=== PATIENT | female | born 2005 | race Caucasian/White ===

== ENCOUNTER 2024-06-20 14:50 | Emergency (ER) | payer OTHER, SELFPAY ==
--- NOTE | ~2024-06-20 | XR_ITS ---
CLINICAL HISTORY: cough, sob 2 view chest x-ray Comparison: None Findings: The lungs are clear. Normal size heart. No acute fracture. IMPRESSION: 1. No acute findings. This document has been electronically signed by: Laila Falcon MD on 06/20/2024 16:26:55
--- OUTSIDE RECORDS SUMMARY | 2024-06-20 14:52 | XMS_ITS ---
Author Organization [facility], Address [address] [place] [address] Care Team Providers Care Operations Specialist Name Role Phone Bella Padilla Unavailable [phone] ALLERGIES, ADVERSE REACTIONS, ALERTS Substance Code Code System Type Reaction Severity Status Start Date End Date gluten 8754225 RxNorm Food allergy () 0 MEDICATIONS Medication Code Code System Start Date Stop Date Route Dosage Directions Fill Instructions ADVAIR DISKUS 250-50MCG/ACT AEPB RxNorm 01/27/20 23 1 CETIRIZINE HCL 10 MG TABLET RxNorm 023 FLUTICASONE PROP 50 MCG SPRAY RxNorm 3 fluticasone propionate 2834720 RxNorm 5 intranasal 1 cetirizine 2779628 RxNorm 5 oral 1 PROBLEMS Problem Name Code Code System Start Date End Date Stat us Other asthma 387466449 [facility] Inactiv e Fever, unspecified 911228917 [facility] 03/28/2023 Resolved Viral infection, unspecified 24710067 [facility] 03/28/2023 Inactive Allergic rhinitis, unspecified 96899214 [facility] 06/19/2024 Active Acute serous otitis media, bilateral 792606536 [facility] 06/19/2024 Active Postnasal drip 85241201 [facility] 06/19/2024 Activ e ENCOUNTERS Encounter Diagnosis Code Code System Date Stat us Fever, unspecified 945017311 [facility] 03/28/2023 Active Viral infection, unspecified 18942601 [facility] 023 Active IMMUNIZATIONS * None VITAL SIGNS Code Code System Vitals Name Date Value and Un its 8462-4 [facility] Blood Pressure-Diastolic 03/28/2023 84 mmHg 8480-6 [facility] Blood Pressure-Systolic 03/28/2023 1 36 mmHg 8867-4 [facility] Heart Rate 03/28/2023 144 /min 9279-1 [facility] Respiratory Rate 03/28/2023 18 /min 8310-5 [facility] Body Temperature 03/28/2023 100.9 F 32358-9 [facility] Oxygen Saturation 03/28/2023 98 % SOCIAL HISTORY * None PROCEDURES Code Code System Procedure Date Status Notes A9150 Cpt4 PO Ibuprofen (Motrin/Advil) (Adult) 03/28/2023 completed Bella Julianryna - 03/28/2023 Dose: 600 mg. Expiration date: 07/13/2024. [employer] Cust[employer]ian lot #: [id number]. [facility] #: [id number].Patient was observed for 5 minutes. Patient tolerated procedure well. Patient left room without difficulty. RESULTS Test Code Code System Description Result Value Date Ref erence Range [facility] Strep A Not Detected 03/28/2023 Not De tected [facility] SARS-CoV-2 Not Detected 03/28/2023 Not D etected [facility] Flu A Not Detected 03/28/2023 Not De tected [facility] Flu B Not Detected 03/28/2023 Not De tected MEDICAL EQUIPMENT * Patient has no history of implantable devices ASSESSMENT * None TREATMENT PLAN Type Description Date APPOINTMENT If not feeling cayden r in 3 day(s), please see your primary care physician. If you do not have a primary care physician, please return to this clinic. 03/28/2023 Labs Tests Test Name Code Code System Date SARS-CoV-2 & Flu A/B Multipl ex Assay, Amplified Probe Molecular RT-PCR / NAAT 18872 [facility] 03/28/2023 Strep A, DNA, Amplified Probe PCR 37403 [facility] 03/28/2023 GOALS * None HEALTH CONCERNS * No Health Concerns FUNCTIONAL AND COGNITIVE STATUS * None CONSULTATION NOTES * None DISCHARGE SUMMARY NOTES * None HISTORY AND PHYSICAL NOTES * None IMAGING NOTES * None LABORATORY REPORT NARRATIVE NOTES * None PATHOLOGY REPORT NARRATIVE NOTES * None PROGRESS NOTES * None
--- OUTSIDE RECORDS SUMMARY | 2024-06-20 14:52 | XMS_ITS ---
Author Organization [facility] Address [address] [place] [address] Care Team Providers Care Reptile Keeper Name Role Phone Grecia Washington Unavailable [phone] ALLERGIES, ADVERSE REACTIONS, ALERTS Substance Code Code System Type Reaction Severity Status Start Date End Date gluten 9860492 RxNorm Food allergy () 0 MEDICATIONS Medication Code Code System Start Date Stop Date Route Dosage Directions Fill Instructions ADVAIR DISKUS 250-50MCG/ACT AEPB RxNorm 01/27/20 23 1 CETIRIZINE HCL 10 MG TABLET RxNorm 023 FLUTICASONE PROP 50 MCG SPRAY RxNorm 3 fluticasone propionate 8599223 RxNorm 5 intranasal 1 cetirizine 0516192 RxNorm 5 oral 1 PROBLEMS Problem Name Code Code System Start Date End Date Stat us Other asthma 714975841 [facility] Inactiv e Fever, unspecified 872021329 [facility] 03/28/2023 Resolved Viral infection, unspecified 34608592 [facility] 03/28/2023 Inactive Allergic rhinitis, unspecified 83353331 [facility] 06/19/2024 Active Acute serous otitis media, bilateral 922398779 [facility] 06/19/2024 Active Postnasal drip 45965218 [facility] 06/19/2024 Activ e ENCOUNTERS Encounter Diagnosis Code Code System Date Stat us Allergic rhinitis, unspecified 34372270 [facility] 025 Active Acute serous otitis media, bilateral 104486673 [facility] 06/19/2024 Active Postnasal drip 50079963 [facility] 06/19/2024 Active IMMUNIZATIONS * None VITAL SIGNS Code Code System Vitals Name Date Value and Un its 8462-4 [facility] Blood Pressure-Diastolic 06/19/2024 74 mmHg 8480-6 [facility] Blood Pressure-Systolic 06/19/2024 1 16 mmHg 8867-4 [facility] Heart Rate 06/19/2024 83 /min 9279-1 [facility] Respiratory Rate 06/19/2024 16 /min 8310-5 [facility] Body Temperature 06/19/2024 97.4 F 57990-8 [facility] Oxygen Saturation 06/19/2024 99 % SOCIAL HISTORY * None PROCEDURES * None RESULTS Test Code Code System Description Result Value Date Ref erence Range [facility] Strep A Not Detected 06/19/2024 Not Det ected MEDICAL EQUIPMENT * Patient has no history of implantable devices ASSESSMENT Assessment You are seen in urgent care today due to respiratory symptoms. On physical exam you have clear effusions behind both your ears we see this in viruses allergies and weather changes and definitely the combination thereof. When I look at. Nose you have very pale purple tinted nasal turbinates bilaterally we see this in cases of allergies and weather changes. In the back your throat you have moderate cobblestoning we see this in cases of postnasal drip from underlying viral and most pacifically allergy related postnasal drip mucus.Recommend addressing this with an antihistamine which is allergy medicine twice daily until improved along with a nasal spray twice daily until improved this can take a very long time to get better please return for any acute changes but as of today there is no indication of a middle or external ear infection strep throat mono tonsillitis pneumonia or bronchitis.Serous Otitis Media is NOT an ear infection, instead, it is a build up of fluid behind your ear drum that causes sensation of pressure/blockage and at times can cause dizziness, crackling/popping sounds, and discomfort. Fluid behind ear drums is a common condition associated with Allergies, Viral upper respiratory infections, sinus inflammation, and many other upper respiratory conditions. This condition will typically resolve on its own within several days but may take up to 4-6 weeks. Infections may occur during this time as the fluid may develop bacterial growth. It is NOT appropriate to treat fluid behind ear drums with antibiotics without clear signs of infection. There is no specific treatment for the fluid itself that is stuck behind ear drums and no bacterial infection. Common things to try to relieve fluid from middle ear are: Decongestant medications, Antihistamines with decongestants (Zyrtec-D twice daily for 5 days), sour hard candies(war heads/lemon drops), Flonase, pinching nose and gently trying to blow out your nose. Be sure to drink plenty of fluids and electrolytes, especially if taking over the counter meds. TREATMENT PLAN Type Description Date MEDICATION Take 50 mcg/actuation spray, rossy pension 06/19/2024 MEDICATION Take 10 mg capsule 06/19/2024 APPOINTMENT If not feeling cayden r in 3 day(s), please see your primary care physician. If you do not have a primary care physician, please return to this clinic. 06/19/2024 Labs Tests Test Name Code Code System Date Shira (SASA) Strep A, DNA Ass ay, Amplified Probe Molecular RT-PCR / NAAT 38782 CPT 06/19/2024 GOALS * None HEALTH CONCERNS * No Health Concerns FUNCTIONAL AND COGNITIVE STATUS Condition Type Condition Effective Dates Condition Status CONSULTATION NOTES * None DISCHARGE SUMMARY NOTES * None HISTORY AND PHYSICAL NOTES * Patient: SHIV ABEL, Sex: F (ID# [id number]) Date of : 2005 (19 years) Visit on 06/19/2024 (Log# [id number]) Historian: Self History of Present Illness: Patient comes in urgent care today accompanied by her mom. Patient states is basically since she has had a runny and stuffy nose with painful swallowing specially for thing in the morning and at nighttime. She has an intermittent cough only here and there. She feels bilateral ear pressure but no ringing hearing loss or dizziness. Denies feeling short of breath no abdominal pain no nausea vomiting no diarrhea. She tried cold medicine but does make her feel any better. Mom is healthy. She has had no travel no rashes. She is able tolerate p.o. fluids and void regularly. Complaint: The patient presents with a chief complaint of sore throat of the neck since Jun 05, 2024. It has the following qualities: scratchy and difficulty swallowing. Context - Initial History: The patient reports it was not the result of an injury. The patient reports that the onset was: ASSOCIATED WITH FEVER; ASSOCIATED WITH PAIN WITH SWALLOWING; not associated with Inability to swallow fluids; ASSOCIATED WITH COUGH; not associated with swollen lymph nodes; not associated with neck pain. The patient also reports cough, fever, nasal discharge, and nasal congestion as abnormal symptoms related to the complaint. Review of Systems: The patient complains of the following recent symptoms: Constitutional: fever fatigue ENT and Mouth: nasal congestion ear pain nasal discharge sore throat: See HPI Respiratory: cough The patient denies the following recent symptoms: Constitutional: denies chills Respiratory: denies congestion Musculoskeletal: denies aches/pains Allergies: patient specifies no known drug allergies gluten: Food allergy. Medications: patient specifies no active medications Problem List: patient specifies no active problems Surgeries: Abdominal/Pelvic surgery: Appendectomy. Social History: Tobacco Use: denies Alcohol: denies Street / Unprescribed Drugs: denies Family History: patient specifies no conditions Vitals: 06:07 PM (06/19/2024)Temperature: 97.4 ?F, Pulse: 83 BPM, BP: 116/74, Respirations: 16/min, O2 Saturation: 99%, O2 Delivery: RAFirst entered 06/19/2024 18:07 by Luis Antonio Heredia Physical Exam: The following exam elements were documented to be abnormal: ENT: abnormality of oropharynx noted. Pharynx: Non-erythematous. No injection. No petechiae. No swelling. Normal voice. Normal swallow reflex. Post-nasal drip noted, with clear fluid. Uvula normal. Normal salivary glands. [place] tonsils: Right: No exudate. Tonsil normal in color. No swelling. Left: No exudate. Tonsil normal in color. No swelling, Moderate cobblestoning posterior pharynx, uvula is midline no trismus. ENT: grossly visible nasal discharge present, Pale edematous purple tented nasal turbinates bilaterally no erythema or purulent discharge noted. The following exam elements were documented to be normal: Cardiovascular: S1, S2 noted, normal rate, regular rhythm, and no murmurs, rubs, gallop, or extra heart sounds. ENT: speaks in normal voice without hoarseness. ENT: oral mucosa without ulcer, plaque, or laceration. ENT: tympanic membranes normal bilaterally. ENT: lips without swelling or lesion, good dentition, no gum swelling, tongue normal in appearance. Eyes: normal conjunctiva bilaterally. General: well developed, well nourished, and in no apparent distress. Lymph: no cervical lymphadenopathy. Muscular: normal active cervical range of motion noted. Muscular: normal posture. Neurological: normal cognitive function. Psychiatric: oriented and alert. Respiratory: breathing effort and rate are grossly normal, speaks in full sentences. Respiratory: no increased work of breathing. Respiratory: lungs clear to auscultation bilaterally with good air movement, no stridor, crackles, rubs, or wheezing. Skin: no visible rash/lesions. Skin: skin dry and normal in temperature. Labs: Shira (SASA) Strep A, DNA Assay, Amplified Probe Molecular RT-PCR / NAAT Code(s): 69432 Results Strep A: Not Detected [place] Shira 3 ([id number]), [id number], Expiry: Operator: [email or web address] Order entered 06/19/2024 18:06 by Luis Antonio Heredia Under supervision of ordering provider STONE GREGORY Completed 06/19/2024 18:06 by Luis Antonio Heredia Reviewed 06/19/2024 18:20 by Grecia Washington Diagnoses: Allergic rhinitis, unspecified (J30.9) Acute serous otitis media, bilateral (H65.03) Postnasal drip (R09.82) Medication Orders: Prescribed: fluticasone propionate 50 mcg/actuation spray, suspension; Take 1 spray (intranasal) 2 times per day for 90 Days administer into each nostril; Total Qty: 15.8 (fifteen point eight) Gram; 2 refill(s); Substitutions allowed; Earliest Fill Date: 06/19/2024ePrescribed at 6:28 PM on 06/19/2024 by MODESTO Gregoryrescription sent to [id number] (P: [phone] F: [phone]) [address] [place] [address], [address] Prescribed: cetirizine 10 mg capsule; Take 1 Capsule (oral) daily for 90 Days; Total Qty: 90 (ninety) Capsule; 0 refill(s); Substitutions allowed; Earliest Fill Date: 06/19/2024ePrescribed at 6:28 PMon 06/19/2024 by MODESTO Gregoryrescription sent to [id number] (P: [phone] F: [phone]) [address] [place], [address] Discharge Instructions: Allergic Rhinitis, Adult Otitis Media With Effusion, Adult Postnasal Drip Plan: If not feeling better in 3 day(s), please see your primary care physician. If you do not have a primary care physician, please return to this clinic. You are seen in urgent care today due to respiratory symptoms. On physical exam you have clear effusions behind both your ears we see this in viruses allergies and weather changes and definitely the combination thereof. When I look at. Nose you have very pale purple tinted nasal turbinates bilaterally we see this in cases of allergies and weather changes. In the back your throat you have moderatecobblestoning we see this in cases of postnasal drip from underlying viral and most pacifically allergy related postnasal drip mucus. Recommend addressing this with an antihistamine which is allergy medicine twice daily until improved along with a nasal spray twice daily until improved this can take a very long time to get better please return for any acute changes but as of today there is no indication of a middle or external ear infection strep throat mono tonsillitis pneumonia or bronchitis. Serous Otitis Media is NOT an ear infection, instead, it is a build up of fluid behind your ear drum that causes sensation of pressure/blockage and at times can cause dizziness, crackling/popping sounds, and discomfort. Fluid behind ear drums is a common condition associated with Allergies, Viral upper respiratory infections, sinus inflammation, and many other upper respiratory conditions. This condition will typically resolve on its own within several days but may take up to 4-6 weeks. Infections may occur during this time as the fluid may develop bacterial growth. It is NOT appropriate to treat fluid behind ear drums with antibiotics without clear signs of infection. There is no specific treatment for the fluid itself that is stuck behind ear drums and no bacterialinfection. Common things to try to relieve fluid from middle ear are: Decongestant medications, Antihistamineswith decongestants (Zyrtec-D twice daily for 5 days), sour hard candies(war heads/lemon drops), Flonase, pinching nose and gently trying to blow out your nose. Be sure to drink plenty of fluids and electrolytes, especially if taking over the counter meds. Medical Decision Making Notes: The patient presents with symptoms that do not suggest middle or external ear infection, strep throat, mononucleosis, tonsillitis, bacterial sinusitis, bronchitis, or pneumonia. Physical examination reveals no significant findings such as otalgia, erythema, exudate, lymphadenopathy, or abnormal lung sounds. They have reassuring vitals and are maintaining their fluids. Imaging is not indicated at this time, nor are oral antibiotics, oral steroids, or breathing treatments. The patient is stable, and either the patient or accompanying family/friend was provided with strict return precautions andED warning signs. [id number] medications they have requested prescription for allergy medications this has been sent. Recommended adequate hydration for symptom management. The patient agreed with the treatment plan and was discharged home in stable condition. Visit discharged at 06/19/2024 6:28:22 PM by Grecia Washington PA-C Signed electronically by Grecia Washington PA-C on 06/19/2024 6:30:17 PM IMAGING NOTES * None LABORATORY REPORT NARRATIVE NOTES * None PATHOLOGY REPORT NARRATIVE NOTES * None PROGRESS NOTES * None
[2024-06-20 14:54] VITALS: BP 138/77; PULSE 96; RESP 18; TEMP 36.9; O2SAT 99; BMI 21.4
--- NOTE | 2024-06-20 14:54 | ED_ITS ---
HPI - URI/Sore Throat General Chief Complaint: Upper Respiratory Symptoms Stated Complaint: Flu Symptoms Time Seen by Provider: 06/20/24 16:11 Source: patient, family (mother), RN notes reviewed and old records reviewed Mode of arrival: ambulatory Limitations: no limitations History of Present Illness ED Provider: Jamal CONDON Narrative: Patient is a 19-year-old female presenting to the emergency department with complaint sore throat, shortness of breath, nonproductive cough, chills, headache, right-sided chest pain since . Reports low-grade fevers intermittently but none in the past few days. Denies any known sick contacts. Denies any nausea, vomiting, diarrhea. States that onset of symptoms sore throat was the worse symptom which has since improved somewhat. Complains of generalized fatigue/malaise. Has been gargling with salt water with little relief. MD elicited complaint: fever, cough and sore throat Onset (ago): week(s) Able to tolerate fluids by mouth: Yes Related Data Previous Rx's ?Medication ?Instructions ?Recorded amoxicillin 250 mg/5 mL oral 500 mg (10 mL) PO BID 10 days #200 06/20/24 suspension mL Allergies Allergy/AdvReac Type Severity Reaction Status Date / Time No Known Allergies Allergy Verified 06/20/24 14:57 Review of Systems Review of Systems: As per HPI Yes all other systems are reviewed and are negative Constitutional: Constitutional: Reports as per HPI [facility] Social History Social History Advance Directives: No Advance Directives Information Provided: No Do you have a plan to hurt others: No Plan Physical Exam Vital Signs: Vital Signs: Last Vital Signs Temp 98.4 F 06/20/24 14:54 Pulse 96 06/20/24 14:54 Resp 18 06/20/24 14:54 BP 138/77 06/20/24 14:54 Pulse Ox 99 06/20/24 14:54 O2 Del Method Room Air 06/20/24 14:54 BMI result Body Mass Index 21.4 Vital signs have been reviewed and appear to be correct. Blood pressure normal. Heart rate normal. Respiratory rate normal. Temperature normal. Oxygen saturation normal. Const: General: cooperative, healthy appearing and no acute distress Orientation/consciousness: oriented to person, oriented to place, oriented to time and patient oriented x3 Limitations: no limitations HEENT: Head: Yes normocephalic and Yes atraumatic Ears: external ears normal, TM's normal bilaterally and EAC's normal General nose exam: Normal external nose present and Normal nasal mucous membranes and turbinates present Face and sinus: Yes face symmetric Mouth: Normal oral and palatal mucosa pre sent, lip normal, tongue normal, oropharynx normal and moist mucous membranes Throat: Yes uvula midline, Yes abnormal tonsil (erythema, no edema or exudate), No peritonsillar mass, No uvular edema and Yes cobblestoning Eyes: Pupils: Equal, round and reactive pupils present Neck: Neck: Yes normal visual inspection, Yes no lymphadenopathy and Yes supple Resp: Effort & Inspection: normal respiratory effort and able to speak in complete sentences Auscultation: clear to auscultation bilaterally Cardio: Rate: regular rate Rhythm: regular rhythm Heart sounds: S1 normal heart sound present and S2 normal heart sound present GI: Palpation (GI): Soft to palpation and nontender Auscultation: normoactive bowel sounds : General: Yes no CVA tenderness Back/Spine/Pelvis: Back: no CVA tenderness Skin: General skin exam: elasticity normal and turgor normal Neuro: General: oriented to person, oriented to place, oriented to time, patient oriented x3, moves all extremities, no focal motor deficits and CN's II- XI intact bilaterally Cranial nerves: Yes Equal, round and reactive pupils present Cognition (Neuro): normal cognition Extrem: General: Yes full ROM, Yes no pedal edema and Yes no calf tenderness Psych: Mental Status: mental status grossly normal Affect: normal affect Thought process: Normal thought process present Course Course Course Narrative: This is a Rapid Medical Exam performed in triage by Zora Sommer PA-C. Full HPI, ROS and PE to be performed by primary ED provider. 19yo F presenting to the ED c/o URI sx w/cough, SOB, [place], sore throat & CP since . +fever & chills. denies sick contacts or travel PE: lungs cta, mild posterior oropharyngeal erythema. Uvula midline Plan: EKG, viral testing, CXR Medical Decision Making Medical Decision Making MDM Narrative: Patient is a 19-year-old female presenting to the emergency department with complaint sore throat, shortness of breath, nonproductive cough, chills, headache, right-sided chest pain since . On exam patient is awake, A+Ox3, VS WNL, afebrile, normal neurological exam without focal deficits, physical exam findings as above. Given reported symptoms and physical exam findings, initial differential includes but is not limited to viral illness, COVID, flu, RSV, strep pharyngitis, bronchitis, pneumonia. Do not suspect [employer]/RPA. Viral serology negative, strep positive. X-ray chest notable for no evidence of pneumonia. My interpretation is in agreement with the radiologist's interpretation. Physical exam findings reassuring. Results discussed with patient and mother and all questions answered. Will treat with amoxicillin suspension at request of patient as she has difficulty swallowing pills. Discussed with patient that she is contagious until she has been on antibiotics for 24 hours. Advised she continue Tylenol and ibuprofen as needed for fever or discomfort, can also continue to gargle with warm salt water and can use a tsp of honey several times daily. Follow up with PCP as needed. Return precautions discussed at bedside. Patient and mother verbalized understanding of and agreement with plan. Differential Diagnosis Differential Diagnoses: The differential diagnosis associated with the presentation includes As per [facility] Lab Data [facility] Lab Attestation statement: I reviewed the patient's lab results. As per [facility] Labs: Lab Results 06/20/24 Range/Units 15:25 Influenza Type A (PCR) NEGATIVE (Negative) Influenza Type B (PCR) NEGATIVE (Negative) RSV RNA Qual (PCR) NEGATIVE (Negative) SARS-CoV-2 RNA (RT-PCR) NEGATIVE (Negative) S. pyogenes GrpA OBDULIO Positive A (Negative) Independent Interpretation I performed an independent interpretation of an: Plain X-Ray Interpretation: No evidence of pneumonia on chest x-ray Radiology Impression Discussion of test interpretation with radiology: I have reviewed the radiologist's reading. Radiologist Impression: IMPRESSION: 1. No acute findings. External Record Review External record reviewed: Inpatient record, Office record and Outpatient record Prescription Management I considered prescription management with: Antibiotic Discharge Plan Discharge Clinical Impression: Acute streptococcal pharyngitis Patient Disposition: Home, Self-Care Instructions: Strep Throat (DC) Additional Instructions: You were evaluated in the emergency department today for a sore throat. Your strep swab was positive. You are being prescribed antibiotics, please complete the full course as prescribed even if your symptoms improve. You are contagious until you have taken the antibiotics for 24 hours. Be sure to drink adequate fluids. You can use Tylenol and ibuprofen per package directions as needed for discomfort. You can also gargle with warm salt water several times daily. Follow-up with your primary care provider this week. Return to the emergency department if you develop difficulty swallowing, worsening pain, shortness of breath, are unable to swallow your saliva, fever not improved with Tylenol/ibuprofen, or any other concerning symptoms. Prescriptions: New amoxicillin 250 mg/5 mL suspension for reconstitution 500 mg PO BID 10 Days Qty: 200 0RF Print Language: Yoruba
--- NOTE | 2024-06-20 14:55 | ECG_ITS ---
Test Reason : CHEST PAIN Blood Pressure : */* mmHG Vent. Rate : 75 BPM Atrial Rate : 75 BPM P-R Int : 140 ms QRS Dur : 76 ms QT Int : 362 ms P-R-T Axes : 33 48 29 degrees QTcB Int : 404 ms Normal sinus rhythm Normal ECG No previous ECGs available Referred By: Zora Sommer Electronically Signed By: TRISTA JUAREZ
[2024-06-20 15:36] LABS: IDNOW Serial# 58CA691E; Strep A Nucleic Acid Positive (Negative)
[2024-06-20 16:07] LABS: Influenza A PCR NEGATIVE (Negative); Influenza B PCR NEGATIVE (Negative); Resp Syncy Virus RNA Qual PCR NEGATIVE (Negative); SARS COV2 PCR INHOUSE NEGATIVE (Negative)
[2024-06-20 17:01] VITALS: BP 101/67; PULSE 72; RESP 20; TEMP 37.1; O2SAT 98
[2024-06-20 17:11] VITALS: BP 101/67; PULSE 72; RESP 20; TEMP 37.1; O2SAT 98
== END 2024-06-20 17:12 | disposition home or self-care (01) ==
PROVIDERS: Physician Assistant; Emergency Provider Emergency Medicine
DX: J02.0 Streptococcal pharyngitis (principal); R06.02 Shortness of breath; R05.9 Cough, unspecified; R51.9 Headache, unspecified; R07.89 Other chest pain; Z03.818 Encounter for observation for suspected exposure to other biological agents ruled out
CPT/HCPCS: 0241U; 71046; 87651; 93005; 99283; 99284

== ENCOUNTER → 2024-06-20 14:55 | Outpatient (BNV) | payer OTHER, SELFPAY | PROVIDERS: Emergency Provider Emergency Medicine; Visit Provider Internal Medicine | DX: R07.9 Chest pain, unspecified (principal) | CPT/HCPCS: 93010 ==

== ENCOUNTER → 2024-06-20 14:55 | Outpatient (BNV) | payer OTHER, SELFPAY | PROVIDERS: Emergency Provider Emergency Medicine; Visit Provider Radiology Diagnostic Radiology | DX: R05.9 Cough, unspecified (principal); R06.02 Shortness of breath | CPT/HCPCS: 71046 ==

== ENCOUNTER 2024-11-15 10:38 | Emergency (ER) | payer OTHER, SELFPAY ==
--- NOTE | ~2024-11-15 | XR_ITS ---
EXAMINATION: XR CHEST CLINICAL INFORMATION: chest pain L sided COMPARISON: June 20 2024 TECHNIQUE: 2 views of the chest were obtained. FINDINGS: No significant abnormality is noted involving the heart, lungs, mediastinum, bony thorax or soft tissues. XR/XR chest 2V IMPRESSION: No acute disease Electronically signed by: Torrey Palomo MD 11/15/2024 01:25 PM EDT RP
[2024-11-15 11:06] VITALS: BP 141/91; PULSE 102; RESP 18; TEMP 36.8; O2SAT 97; BMI 22.3
--- NOTE | 2024-11-15 11:08 | ECG_ITS ---
Test Reason : CP Blood Pressure : */* mmHG Vent. Rate : 87 BPM Atrial Rate : 87 BPM P-R Int : 142 ms QRS Dur : 76 ms QT Int : 364 ms P-R-T Axes : 40 57 15 degrees QTcB Int : 438 ms Normal sinus rhythm with sinus arrhythmia Normal ECG When compared with ECG of 20-Jun-2024 15:22, No significant change was found Referred By: Ruth Cedeño Electronically Signed By: TRISTA JUAREZ
--- NOTE | 2024-11-15 11:09 | ED_ITS ---
HPI - Chest Pain General Chief Complaint: General Medical Stated Complaint: Upper back pain Time Seen by Provider: 11/15/24 11:29 Source: patient and family Mode of arrival: ambulatory Limitations: no limitations History of Present Illness ED Provider: Ike Barron PA-C HPI narrative: 19-year-old female with history of asthma presents to the ER for evaluation of acute onset of left upper back pain and left-sided chest pain that started last night around 9pm when she was sitting up watching TV. She reports the pain started gradually and became more intense as the night went on. She states the pain is worse with breathing and movement. She was unable to sleep last night due to the pain. She took Advil without any affect. She denies any associated shortness of breath, coughing, fever, chills, lower extremity swelling. No recent travel. She is not on control. No history of DVT or PE in her or her family. No recent strenuous activity or MSK injury. MD complaint: chest pain and other (Left upper back pain) Pertinent past history: asthma Onset (ago): hour(s) Timing of current episode: constant Prior episodes: Yes Onset: during rest Pain location: left chest Pain radiation: back Severity: severe Pain scale (0-10): 9 Quality: sharp Relieving factors: nothing Exacerbating factors: inspiration and movement Treatment prior to arrival: none Risk Factors Coronary artery disease risk factors: none Thoracic aortic dissection risk factors: none Related Data On Oral Contraceptives: No Previous Rx's ?Medication ?Instructions ?Recorded amoxicillin 250 mg/5 mL oral 500 mg (10 mL) PO BID 10 days #200 06/20/24 suspension mL cyclobenzaprine 5 mg tablet 5 mg PO BID PRN muscle spasm #7 11/15/24 tabs naproxen 500 mg tablet 500 mg PO BID PRN pain #20 tabs 11/15/24 Allergies Allergy/AdvReac Type Severity Reaction Status Date / Time No Known Allergies Allergy Verified 11/15/24 11:08 Review of Systems 2 Review of Systems: Yes all other systems are reviewed and are negative [facility] Social History Social History Advance Directives: No Advance Directives Information Provided: No Do you have a plan to hurt others: No Plan Physical Exam 2 Vital Signs: Vital Signs: Last Vital Signs Temp 98.2 F 11/15/24 11:06 Pulse 102 H 11/15/24 11:06 Resp 18 11/15/24 11:06 BP 141/91 H 11/15/24 11:06 Pulse Ox 97 11/15/24 11:06 O2 Del Method Room Air 11/15/24 11:06 BMI result Body Mass Index 22.3 Appearance: Alert. Oriented X3. No acute distress. Head: normocephalic, atraumatic. Eyes: Pupils equal, round and reactive to light. ENT: Pharynx normal. No tonsillar swelling or exudate. Neck: Normal inspection. Neck supple. CVS: Normal heart rate and rhythm. Pulses normal. Respiratory: No respiratory distress. Breath sounds normal. Back: Normal inspection. Nontender left upper back, no palpable muscle spasm Abdomen: Soft and nontender. +BS x4 Skin: Skin warm and dry. Normal skin color. Normal skin turgor. No rashes. Extremities: No lower extremity edema. No joint swelling. Negative Homans sign Neuro/psych: Oriented X 3. Grossly normal, nonfocal CN II-XII intact. Normal speech and cognition. Course Course Course Narrative: 19 yo female with no sig PMH not on OCPs she reports evening last night with back pain across upper back and now L sided more it goes into L side of chest, worse with movements and breathing. The patient has not traveled or had procedures. This has never happened before. She is crying. She is splinting when breathing. No recent URI. NO other new issues and no trauma she can think of. She tried advil without relief. At this time CXR, EKG, labs, did discuss about bringing into the main via charge histotechnologist this is a RAPID medical screening exam the rest of the history and physical exam is to be done by the main provider. JEFF 11/15/24 1111am Medications Administered Discontinued Medications Generic Name Dose Route Start Last Admin Trade Name Freq PRN Reason Stop Dose Admin Ibuprofen 600 mg 11/15/24 11:35 11/15/24 12:34 Ibuprofen 600 Mg Tablet PO 11/15/24 11:36 600 mg ONCE ONE Administration Lidocaine 1 patch 11/15/24 11:35 11/15/24 12:34 Lidocaine 4 % Patch Adh..Patch TRANSDERMA 11/15/24 11:36 1 patch ONCE ONE Administration Protocol Medical Decision Making Medical Decision Making MDM Narrative: 19-year-old female with history of asthma presenting to the ER for evaluation of left upper back and left-sided chest pain that started last night. D-dimer is negative along with troponin, BNP. This is all very reassuring against pulmonary embolism bedside POCUS without pericardial effusion. CXR is normal, no PTX, normal cardiac silhouette UA is normal. Pain is most likely muscular in nature. Will prescribe NSAID and muscle relaxer. Encouraged follow-up with her PCP. Return precautions were discussed. Comfortable discharge home Differential Diagnosis Differential Diagnoses: The differential diagnosis associated with the presentation includes Muscle strain/spasm, pneumonia, PE, costochondritis, pneumothorax Admission/Observation Consideration of admission/observation: Escalation of care including admission/observation considered Lab Data MDM Lab Attestation statement: I reviewed the patient's lab results. No leukocytosis, normal renal function, no major metabolic derangement, negative troponin and BNP 11/15/24 11:31 11/15/24 11:31 Labs: Lab Results 11/15/24 11/15/24 11/15/24 Range/Units 11:31 14:01 14:02 WBC 7.0 (4.8-10.8) X10*3/uL RBC 4.13 L (4.20-5.50) X10*6/uL Hgb 13.0 (12.0-16.0) g/dl Hct 38.4 (37.0-47.0) % MCV 93.0 (80.0-98.0) fL MCH 31.5 (27.0-33.0) pg MCHC 33.9 (31.0-35.0) g/dl RDW 11.9 (11.0-16.0) % Plt Count 235 (160-400) X10*3/uL MPV 9.7 (9.4-12.3) fL Immature Gran % (Auto) 0.3 (0.0-0.4) % Neut % (Auto) 70.0 (45-73) % Lymph % (Auto) 21.3 (20-40) % [place] % (Auto) 7.4 (2-11) % Eos % (Auto) 0.7 (0-4) % Baso % (Auto) 0.3 (0-2) % Lymph # (Auto) 1.5 (1.2-4.9) X10*3/uL [place] # (Auto) 0.5 (0.1-1.2) X10*3/uL Eos # (Auto) 0.1 (0.0-0.4) X10*3/uL Baso # (Auto) 0.0 (0.0-0.2) X10*3/uL Abs Immat Gran (auto) 0.02 (0.00-0.03) X10*3/uL Absolute Neuts (auto) 4.9 (2.0-8.3) x10*3/uL Absolute Nucleated RBC 0.000 (0.0-0.012) X10*3/uL Nucleated RBC % (auto) 0.0 (0.0-0.2) /100WBC D-Dimer High Sensitivty < 150 NG/ML Sodium 141 (135-145) mmol/L Potassium 4.1 (3.3-5.1) mmol/L Chloride 108 (96-108) mmol/L Carbon Dioxide 27 (22-29) mmol/L Anion Gap 10 L (12-20) BUN 8 L (9-16) mg/dL Creatinine 0.59 (0.5-1.4) mg/dL Estim Creat Clear Calc 119.3 Estimated GFR > 60 Random Glucose 88 (60-115) mg/dL Calcium 9.8 (8.4-10.2) mg/dL Magnesium 2.0 (1.6-2.6) mg/dL Total Bilirubin 0.5 (0.0-1.0) mg/dL Direct Bilirubin 0.2 (0.0-0.5) mg/dL AST 18 (5-31) U/L ALT 11 (0-31) U/L Alkaline Phosphatase 63 (39-117) U/L Troponin I High Sens < 2.7 (<3.5-17.0) ng/L C-Reactive Protein < 0.04 (< or = 0.50) mg/dL B-Natriuretic Peptide < 10 (<100) pg/mL Total Protein 7.5 (6.5-8.0) g/dL Albumin 4.7 (3.5-5.0) g/dL Lipase 13 (8-78) U/L Urine Color Yellow Urine Appearance Clear Urine pH 7.5 (5.0-9.0) Ur Specific [place] 1.015 (1.005-1.025) Urine Protein Negative (Neg-Trace) mg/dL Urine Glucose (UA) Negative (Negative) mg/dL Urine Ketones Negative (Negative) mg/dL Urine Blood Negative (Negative) Urine Nitrite Negative (Negative) Ur Leukocyte Esterase Negative (Negative) Urine Test NEGATIVE (NEGATIVE) Independent Interpretation I performed an independent interpretation of an: EKG and Plain X-Ray Interpretation: Chest x-ray without any visible pneumothorax, normal cardiac silhouette, no focal infiltrate or effusion EKG with sinus rhythm with sinus arrhythmia, ventricular rate 87 beats per minute, normal AR interval, normal QTC, no major change from June of this year Radiology Impression Discussion of test interpretation with radiology: I have reviewed the radiologist's reading. Independent Historian Clinical information obtained from an independent historian. History obtained from or confirmed by: Parent External Record Review External record reviewed: Outpatient record, Prior outpatient labs and Prior outpatient radiology Tests considered The following testing was considered but not selected: CTA considered however low D-dimer, no risk factors and negative troponin and BNP are all reassuring against pulmonary embolism Prescription Management I considered prescription management with: Pain Medication Critical Care Time Critical Care Time Critical Care Time: No Discharge Plan Discharge Clinical Impression: Back pain Qualifiers: Back pain location: thoracic back pain Chronicity: acute Back pain laterality: left Qualified Code(s): M54.6 - Pain in thoracic spine Chest pain Qualifiers: Chest pain type: unspecified Qualified Code(s): R07.9 - Chest pain, unspecified Patient Disposition: Home, Self-Care Instructions: Costochondritis (DC), Back Pain (ED) Additional Instructions: Your lab workup today was all very reassuring. Your chest x-ray was normal. Recommend trial of anti-inflammatories as prescribed for muscular pain. Take with food. Take the prescribed muscle relaxer as needed for muscle pain. Do not drive after taking this medication, it can make you sleepy. Rest, no strenuous activity. Recommend using a heating pad to help relax the muscle fibers. Follow-up with your doctor. If you develop new or worsening symptoms call 911 or come back to the ER for further evaluation. Prescriptions: New naproxen 500 mg tablet 500 mg PO BID PRN (Reason: pain) Qty: 20 0RF cyclobenzaprine 5 mg tablet 5 mg PO BID PRN (Reason: muscle spasm) Qty: 7 0RF No Action amoxicillin 250 mg/5 mL suspension for reconstitution 500 mg PO BID 10 Days Qty: 200 0RF Print Language: Croatian
[2024-11-15 11:37] LABS: MANUAL DIFF FLAG NO
[2024-11-15 11:38] LABS: Basophils Percent Auto 0.3 % (0-2); Eosinophils Absolute Auto 0.1 X10*3/uL (0.0-0.4); Eosinophils Percent Auto 0.7 % (0-4); Hematocrit 38.4 % (37.0-47.0); Imm Gran Abs Auto 0.02 X10*3/uL (0.00-0.03); Imm Gran Pct Auto 0.3 % (0.0-0.4); Lymphocytes Absolute Auto 1.5 X10*3/uL (1.2-4.9); Lymphocytes Percent Auto 21.3 % (20-40); Mean Corpuscular HGB Conc 33.9 g/dl (31.0-35.0); Mean Corpuscular Hemoglobin 31.5 pg (27.0-33.0); Mean Platelet Volume 9.7 fL (9.4-12.3); Monocytes Absolute Auto 0.5 X10*3/uL (0.1-1.2); Monocytes Percent Auto 7.4 % (2-11); Neutrophils Absolute Auto 4.9 x10*3/uL (2.0-8.3); Platelet Count 235 X10*3/uL (160-400); Red Blood Count 4.13 X10*6/uL (4.20-5.50); Red Cell Distribution Width 11.9 % (11.0-16.0)
[2024-11-15 11:51] LABS: D Dimer High Sensitivity < 150 NG/ML
[2024-11-15 11:56] LABS: Alanine Aminotransferase 11 U/L (0-31); Albumin Level 4.7 g/dL (3.5-5.0); Alkaline Phosphatase 63 U/L (39-117); Anion Gap 10 (12-20); Aspartate Amino Transferase 18 U/L (5-31); Bilirubin Direct 0.2 mg/dL (0.0-0.5); Bilirubin Total 0.5 mg/dL (0.0-1.0); Blood Urea Nitrogen 8 mg/dL (9-16); C Reactive Protein < 0.04 mg/dL (< or = 0.50); Calcium 9.8 mg/dL (8.4-10.2); Carbon Dioxide 27 mmol/L (22-29); Chloride 108 mmol/L (96-108); Creatinine Clr Calc Pharmacy 119.3; Estimated Glomerular Filt Rate > 60; Glucose Random 88 mg/dL (60-115); Lipase 13 U/L (8-78); Potassium 4.1 mmol/L (3.3-5.1); Sodium 141 mmol/L (135-145); Total Protein 7.5 g/dL (6.5-8.0)
[2024-11-15 11:57] LABS: B Type Natriuretic Peptide < 10 pg/mL (<100)
[2024-11-15 12:09] LABS: Troponin-I High Sensitivity < 2.7 ng/L (<3.5-17.0)
[2024-11-15] MEDS: Lidocaine 4 % Patch ADH..PATCH 1 PATCH TRANSDERMA (12:34)
[2024-11-15] MEDS: Ibuprofen 600 MG TABLET PO (12:34)
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
[2024-11-15 14:12] LABS: Appearance Urine Clear; Color Urine Yellow; Glucose Urine UA Negative (Negative); Leukocyte Esterase Urine Negative (Negative); Nitrite Urine Negative (Negative); PH 7.5 (5.0-9.0); Specific Gravity - Urine 1.015 (1.005-1.025); Urine Blood Negative (Negative); Urine Ketones Negative (Negative); Urine Protein Negative (Neg-Trace)
[2024-11-15 14:12] LABS: UPreg QC Valid YES; Urine Pregnancy NEGATIVE (NEGATIVE)
[2024-11-15] MEDS: Ibuprofen 400 MG TABLET PO (14:50)
[2024-11-15 15:32] VITALS: BP 141/91; PULSE 102; RESP 18; TEMP 36.8; O2SAT 97
== END 2024-11-15 15:10 | disposition home or self-care (01) ==
PROVIDERS: Emergency Medicine; Physician Assistant; Emergency Provider Emergency Medicine
DX: R07.89 Other chest pain (principal); M54.50 Low back pain, unspecified; J45.909 Unspecified asthma, uncomplicated; M54.6 Pain in thoracic spine; R06.02 Shortness of breath; I49.8 Other specified cardiac arrhythmias; Z79.899 Other long term (current) drug therapy
CPT/HCPCS: 36415; 71046; 80048; 80076; 81003; 81025; 83690; 83735; 83880; 84484; 85025; 85379; 86140; 93005; 99283; 99284

== ENCOUNTER → 2024-11-15 11:08 | Outpatient (BNV) | payer OTHER, SELFPAY | PROVIDERS: Emergency Provider Emergency Medicine; Visit Provider Radiology Diagnostic Radiology | DX: R07.9 Chest pain, unspecified (principal) | CPT/HCPCS: 71046 ==

== ENCOUNTER → 2024-11-15 11:08 | Outpatient (BNV) | payer OTHER, SELFPAY | PROVIDERS: Emergency Provider Emergency Medicine; Visit Provider Internal Medicine | DX: R07.9 Chest pain, unspecified (principal) | CPT/HCPCS: 93010 ==

== ENCOUNTER 2024-12-23 19:50 | Emergency (ER) | payer OTHER, SELFPAY ==
[2024-12-23 19:52] VITALS: BP 125/76; PULSE 85; RESP 16; TEMP 36.1; O2SAT 100; BMI 22.7
--- NOTE | 2024-12-23 19:54 | ED_ITS ---
HPI - General Adult General Chief complaint: Animal Bite Stated complaint: stung by soemthing on left arm/ swollen red Time Seen by Provider: 12/23/24 20:03 Source: patient and family (mom) Limitations: no limitations History of Present Illness HPI narrative: 19-year-old female presents with mom for evaluation of possible insect bite to her left forearm. The incident occurred at approximately 6:30 p.m. today while the patient was walking outside. She felt a pinch and burning sensation to the left forearm. She did not see exactly what it was. She reports shortly after having brief episodes of nausea. Mom reports that she cleaned the area off with an alcohol wipe and soap and water. No other rash or other physical findings noted. She denies any chest pain or shortness of breath. Related Data Previous Rx's ?Medication ?Instructions ?Recorded amoxicillin 250 mg/5 mL oral 500 mg (10 mL) PO BID 10 days #200 06/20/24 suspension mL cyclobenzaprine 5 mg tablet 5 mg PO BID PRN muscle spa sm #7 11/15/24 tabs naproxen 500 mg tablet 500 mg PO BID PRN pain #20 t abs 11/15/24 Allergies Allergy/AdvReac Type Severity Reaction Status Date / Time No Known Allergies Allergy Verified 12/23/24 19:54 Review of Systems Review of Systems: Yes all other systems are reviewed and are negative Constitutional: Constitutional: Denies chills and Denies fever(s) Eyes: Eyes: Denies change in vision and Denies other (No redness.) ENT: Denies nasal congestion, Denies nasal discharge, Denies neck pain and Denies sore throat Cardiovascular: Cardiovascular: Denies chest pain, Denies palpitations, Denies dyspnea, Denies dyspnea on exertion and Denies orthopnea Respiratory: Respiratory: Denies cough, Denies dyspnea and Denies dyspnea on exertion Gastrointestinal: Gastrointestinal: Denies abdominal pain, Denies hematochezia, Denies diarrhea and Denies vomiting Musculoskeletal: Musculoskeletal: Denies back pain, Denies muscle weakness and Denies neck pain Integumentary/Breasts: Skin/Breast: Denies rash Endocrine: Endocrine: Denies palpitations PMF Social History Social History Advance Directives: No Advance Directives Information Provided: No Do you have a plan to hurt others: No Plan Physical Exam ED Vital Signs: Vital Signs - 24 hr 12/23/24 19:52 12/23/24 20:08 Temperature 97.0 F 97.0 F Pulse Rate 85 85 Respiratory Rate 16 16 Blood Pressure 125/76 125/76 Pulse Oximetry 100 100 Oxygen Delivery Method Room Air Room Air BMI result Body Mass Index 22.7 Const Other: Speaks full clear sentences General: cooperative, alert and awake HENMT Other: Pupils equal round and react to light. Oropharynx is moist. No tongue elevation or edema. No stridor. No drooling. Resp Auscultation: clear to auscultation bilaterally Cardio Rate: regular rate Rhythm: regular rhythm Skin Other: Slight area of erythema to the left mid forearm. There is a 0.5 cm of slightly raised area to the center of the forearm without significant induration, no foreign body noted. No streaking or discharge. No skin breakdown. Medical Decision Making Medical Decision Making MDM Narrative: Patient is well-appearing and in no acute distress. Suspected insect bite or sting. No stinger is noted in the area. The patient is not having any respiratory distress and there was no widespread erythema, rash or evidence of systemic effects. Given that the patient is hemodynamically stable and without any other acute findings, she would like to proceed with Benadryl and hydrocortisone cream to the affected area. Zyrtec orally. All of these medications mom confirms she has at home. They expresses understanding of all discharge instructions and have no further questions at this time. Advised that if symptoms worsen or do not improve to return immediately to the emergency department. Differential Diagnosis Differential Diagnoses: The differential diagnosis associated with the presentation includes Anaphylaxis, no evidence of Insect bite Insect sting Contusion Discharge Plan Discharge Clinical Impression: Insect bite Qualifiers: Encounter type: initial encounter Site of insect bite: forearm Patient Disposition: Home, Self-Care Instructions: Insect Bite or Sting (ED) Additional Instructions: Cool compresses to the affected area. You may use Benadryl cream and hydrocortisone cream to the left forearm. Zyrtec, as directed. Watch for any worsening of symptoms, severe pain, swelling, redness, streaking or any other concern return immediately to the emergency department. Prescriptions: No Action amoxicillin 250 mg/5 mL suspension for reconstitution 500 mg PO BID 10 Days Qty: 200 0RF naproxen 500 mg tablet 500 mg PO BID PRN (Reason: pain) Qty: 20 0RF cyclobenzaprine 5 mg tablet 5 mg PO BID PRN (Reason: muscle spasm) Qty: 7 0RF Interventions: ED Discharge Assessment Last Done: 12/23/24 20:08 Discharge Date/Time: 12/23/24 20:10 Print Language: Nigerien
[2024-12-23 20:08] VITALS: BP 125/76; PULSE 85; RESP 16; TEMP 36.1; O2SAT 100
--- OUTSIDE RECORDS SUMMARY | 2024-12-23 20:08 | XMS_ITS | Clinical Summary ---
Author Organization [facility] Facility Address [address] [place] [address], [place] [address] Care Team Providers Care Validation Software Facilitator Name Role Phone Frank Hart MD MPH Primary Care Provider [phone] Allergies Active Allergy Reactions Criticality Noted Date Comments Gluten Meal 12/11/2020 Other Other (see comments) 03/25/2020 Medications albuterol (2.5 MG/3ML) 0.083% nebulizer solution USE 1 VIAL EVERY 4 HOURS NEEDED 1 Active benzoyl peroxide 10 % gel MIX 30 GRAMS (1/2 TUBE) WITH CLINDAMYCIN AND APPLY TOPICALLY TO NECK AND CHEST TWICE A DAY 1 Active Cetirizine HCl 5 MG/5ML solution Take 10 mL by mouth 0 Active clindamycin (CLINDAGEL) 1 % gel APPLY TOPICALLY TO NECK AND CHEST TWO TIMES A DAY 1 Active fluticasone (FLONASE) 50 MCG/ACT nasal spray Administer 2 sprays into affected nostril(s) daily Active hydrocortisone 2.5 % ointment APPLY TO AFFECTED AREA(S) ON NECK TWO TIMES A DAY FOR 14 DAYS TAKE A BREAK FOR 1 WEEK THEN REPEAT 9 Active hyoscyamine (ANASPAZ,LEVSIN) 0.125 MG tablet Take 125 mcg by mouth 2 (two) times a day 1 Active ketoconazole (NIZORAL) 2 % shampoo APPLY TOPICALLY TO SCALP TWICE A WEEK. LEAVE ON FOR 5 MINUTES THEN RINSE OFF. 1 Active Meclizine HCl 25 MG chewable tablet CHEW AND SWALLOW ONE TABLET BY MOUTH THREE TIMES A DAY NEEDED FOR DIZZIENESS 0 Active ondansetron (ZOFRAN) 4 MG tablet 0 Active polyethylene glycol (GLYCOLAX) 17 GM/SCOOP powder Take 17 g by mouth 9 Active predniSONE (DELTASONE) 10 MG tablet TAKE 4 TABLETS DAILY FOR 5 DAYS, THEN TAKE 2 TABLETS DAILY FOR 5 DAYS, THEN TAKE 1 TABLET DAILY FOR 5 DAYS 1 Active prochlorperazine (COMPAZINE) 5 MG tablet TAKE ONE TABLET BY MOUTH EVERY 6 HOURS NEEDED FOR VERTIGO AND MIGRAINE 1 Active rizatriptan PROTEOMICS SCIENTIST (MAXALT-PROTEOMICS SCIENTIST) 5 MG dispersible tablet TAKE 1 CAPSULE NEEDED FOR MIGRAINE MAY REPEAT IN 2 HOURS IF NEEDED 1 Active selenium sulfide (SELSUN) 2.5 % shampoo 9 Active Sennosides 15 MG chewable tablet 0 Active topiramate (TOPAMAX SPRINKLE) 25 MG capsule Take 25 mg by mouth if needed 1 Active tretinoin (RETIN-A) 0.05 % cream 9 Active naproxen (NAPROSYN) 125 MG/5ML suspension Take 500 mg by mouth 1 Active Flovent Diskus 250 MCG/BLIST diskus inhaler INHALE 2 PUFFS INTO THE LUNGS DIRECTED ONCE DAILY DIRECTED 1 Active metoclopramide (REGLAN) 10 MG/10ML oral solution See Instructions, 5 mL By Mouth at onset of migraine, repeat in 6 hours if needed, # 150 mL, 6 Refills, Maintenance, 08/13/15 17:11:29, 5 mL By Mouth at onset of migraine, repeat in 6 hours if needed 6 Active SUMAtriptan (IMITREX) 5 MG/ACT nasal spray Administer 5 mg into one nostril if needed 6 Active Active Problems Problem Noted Date Diagnosed Date Nephrolithiasis 08/13/2021 Hydronephrosis with ureteropelvic junction obstr uction 08/13/2021 Chest pain at rest 06/09/2021 Resolved Problems Problem Noted Date Diagnosed Date Resolved Date Musculoskeletal pain 12/19/2020 021 Overview (05/05/2021): Dx'd with amplified pain synd and recs for PT, CBT advised by Rheum 12/2020 Vertigo 06/11/2020 06/02/2021 Overview (05/05/2021): Assessed in office and by ENT, Neuro. ENT feels possible BPPV- recommended PT Neuro thinks vertigo with migraine and requested brain MRI 05/2020 Cardiac: EKG wl but saw Cardio whos is questioning SVT and requested loop moniotring Last Assessment & Plan: Rx for meds given. IN PT. Followed by ENT/Neuro Irritable bowel syndrome with constipation 05/29/2020 06/02/2021 Overview (05/05/2021): Assessed by GI 05/2020. Rec Miralax and exlax. Migrainous vertigo 05/29/2020 Overview (05/05/2021): Last Assessment & Plan: Foloowed by ENT and Dr Vargas Mild intermittent asthma 10/08/2019 Disorder of tooth development 04/19/2019 06/02/2021 Overview (05/05/2021): Will need jaw surgery to correct Last Assessment & Plan: Mom describes dental concerns that will need to be surgically corrected (breaking of jaw and realignment and wiring shut to heal) Abdominal pain, left upper quadrant 10/26/2017 06/02/2021 Overview (05/05/2021): left upper quadrant abdominal pain (789.02) Onset: 10/26/2017 Added by: Perlita Hart Other fatigue 10/25/2017 06/02/2021 Overview (05/05/2021): Fatigue (780.79) Onset: 10/25/2017 Added by: Perlita Hart Last Assessment & Plan: Negative for anemia, thyroid dysfunc, mono in the past (8927-7173 labs) Migraine without aura, not refractory 08/21/2017 06/02/2021 Overview (05/05/2021): Migraine, other form, NEC (346.80) Onset: 08/21/2017 Added by: Perlita Hart Last Assessment & Plan: Seen on VV with Dr Vargas. Restarted Topiramate for migraines. Compazine/Rizatriptan for vertigo/CLIFFORD. F/U August 2020 Stricture and stenosis of esophagus 07/29/2017 06/02/2021 Overview (05/05/2021): Esophageal stricture (530.3) Onset: 07/29/2017 Added by: Radha Jimenez Weight loss 08/16/2016 06/02/2021 Overview (05/05/2021): Loss of weight (783.21) Onset: 08/16/2016 Added by: Rosie Perez Last Assessment & Plan: Good weight gain in interim. No concerns at present. Dx'd with IBS-C that will likley play a role in her weight, along with her ongoing constipation Immunizations Immunization Administration Dates Next Due DTaP 07/11/2009, 5,2003,2003,0 2003 DTaP 5 07/11/2009, 5,2003,2003,0 2003 HPV, Unspecified 04/19/2019 Hep A, 2 Dose 07/03/2020,04/19/2019 Hep B, Adolescent or Pediatric 2003,2003,2003 Hib (PRP-T) 05/28/2004,2003,2003 ,2003 IPV 07/11/2009,09/10/2004,2003 ,2003 MMR 07/11/2009,05/28/2004 Meningococcal MCV4P 07/03/2020,12/22/2017 Pneumococcal Conjugate 05/28/2004,03/04/2004,,2003 Tdap 08/04/2011 Varicella 08/04/2011,05/28/2004 Family History Medical History Relation Comments Asthma Maternal Grandfather Cancer Maternal Grandfather Heart disease Maternal Grandfather Hypertension Maternal Grandfather Anxiety disorder Maternal Grandmother Lung disease Maternal Grandmother Anxiety disorder Mother Arthritis Mother Autoimmune disease Mother Carpal tunnel syndrome Mother Fibromyalgia Mother Lupus Mother Migraines Mother Relation Status Comments Maternal Grandfather Maternal Grandmother Mother Social History Tobacco Use Types Packs/Day Years Used Date Smoking Tobacco: Never Smokeless Tobacco: Never Alcohol Use Standard Drinks/Week Comments Never 0 (1 standard drink = 0.6 oz pur e alcohol) Comments Unknown Sex and Gender Information Value Date Recorded Sex Assigned at Not on file Legal Sex Female 4:30 PM EST Gender Identity Not on file Sexual Orientation Not on file Last Filed Vital Signs Vital Sign Reading Time Taken Comments Blood Pressure 98/64 05/06/2021 11:33 AM EST Pulse 88 05/06/2021 11:33 AM EST Temperature - - Respiratory Rate - - Oxygen Saturation - - Inhaled Oxygen Concentration - - Weight 52.2 kg (115 lb) 05/06/2021 11:33 AM EST Height 157.5 cm (5' 2 ) 05/06/2021 11:33 AM EST Body Mass Index 21.03 05/06/2021 11:33 AM EST Plan of Treatment Health Maintenance Due Date Last Done Comments Pneumococcal Vaccine: Peds ( 0 to 5 Years) and At-Risk Patients (6 to 49 Years) (1 of 2 - PCV) 2022 05/28/2004, 03/04/2004, 2003, Additional history exists Influenza Vaccine (#1) 2025 Hepatitis B Vaccine Completed 2003, 2003, 2003 Insurance [place] Care Teams Validation Software Facilitator Relationship Specialty Start Date End Date Frank Hart MD MPH [address] [place] [address] [place] [address] PCP - General Pediatrics 05/04/21
--- OUTSIDE RECORDS SUMMARY | 2024-12-23 20:08 | XMS_ITS | Clinical Summary ---
Author Organization [facility] Address [address] [place] [id number] Phone Care Team Providers Care Job Training Supervisor Name Role Phone Perlita Hart MD Primary Care Provider [phone] Allergies Active Allergy Reactions Criticality Noted Date [...] hours as needed. 05/29/20 20 Active rizatriptan RCIS 5 MG disintegrating tablet TAKE 1 CAPSULE [...] anemia, thyroid dysfunc, mono in the past (7987-0721 labs) Migraine without aura and wi thout status migrainosus, not intractable 08/21/2017 Overview (03/08/2022): Followed by Dr aVrgas. Assessment & Plan (07/13/2022 5:47 PM EST): [...] Encounters Date Type Department Care Team Description 12/23/2024 7:50 PM EDT - Present Emergency [facility] - Patient Ping 11/15/2024 10:38 AM EDT - 11/15/2024 3:10 PM EDT Emergency [facility] - Patient Ping 10/16/2024 Telephone [facility] - [address] [place] [address] Perlita Hart MD Transition Of Care 09/25/2024 Telephone [facility] - [address] [place] [address] Kate Rodriguez MA Transition Of Care from [...] 93 07/19/2023 3:52 PM EST Temperature 36.6 C (97.8 F) 07/19/2023 3:52 PM EST Respiratory Rate 18 07/19/2023 3:52 PM EST [...] Trum enba SCDM 2-dose series) 07/11/2022 01/08/2022 COVID-19 Vaccine (3 - 2023-2 5 season) 2024 11/01/2021, 10/11/2021 Chlamydia and Gonorrhea Screening 06/13/2024 07/13/2022, 01/08/2022, 12/03/2020 Influenza Vaccines (#1) 2025 Hepatitis B Vaccines Completed 2003, 2003, 2003 [...] complete until the patient is discharged.Due to [facility] law, this organization might not be sharing sensitive test results. Procedure Name Priority Date/Time Associated Diagnosis Comments CHLAMYDIA AND GONORRHEA, AMPLIFIED Routine 07/13/2022 6:28 PM EST Screening for STDs (sexually transmitted diseases) COMPREHENSIVE METABOLIC PANEL Routine 03/26/2020 10:14 AM EDT Left upper quadrant abdominal pain from Last 3 Months or Most Recently Relevant to Health Maintenance Results * Due to [place] law, this organization might not be sharing sensitive test results. * Chlamydia and Gonorrhoea, Amplified (07/13/2022 6:28 PM EST) Chlamydia Trachomatis, DNA Probe NEGATIVE (NEG) [facility] Comment: No Chlamydia Trachomatis RNA detected in this patient's sample (REFERENCE RANGE/NORMAL VALUE: NOT DETECTED) Note: This test uses baking assistant- mediated amplification method to detect rRNA from C. Trachomatis URINE GC AMP PROBE NEGATIVE (NEG) [facility] Comment: No Neisseria Gonorrhoeae RNA detected in this patient's sample (REFERENCE RANGE/NORMAL VALUE: NOT DETECTED) NOTE: This test uses baking assistant-mediated amplification method to detect rRNA from N.Gonorrhoeae. [...] risk of sexual abuse. Consult the [facility] if needed. Contact phone number . Therapeutic failure or success cannot be determined with the Aptima Combo2 assay since nucleic acid may persist following appropriate antimicrobial therapy. The Centers for Disease Control and Prevention (CDC) recommends confirmatory retesting using culture or a different nucleic acid amplification test when positive results occur, if indicated. Testing performed or reported by [facility], a Service of [facility], [address], [place] [address] Teto Wood MD, Hydrochloric Area Supervisor [facility]# [id number] Urine (Urine) 07/13/2022 6:2 8 PM EST 07/14/2022 8:29 AM EST us Perlita Hart MD LAB MICROBIOLOGY - GENERAL ORDER MACIEL Final Result [facility] * (ABNORMAL) Comprehensive Metabolic Panel (03/26/2020 10:14 AM EDT) Glucose 102(H) (70-99) MG/DL [facility] Urea Nitrogen 7 (5-18) MG/DL [facility] Creatinine 0.6 (0.5-1.0) MG/DL [facility] Sodium 142 (133-145) MMOL/L [facility] Potassium 4.5 (3.6-5.2) MMOL/L [facility] Chloride 101 (98-107) MMOL/L [facility], Arterial 28 (22-29) MMOL/L [facility] Anion Gap 13 (4-17) [facility] Albumin 4.9(H) (3.2-4.5) GM/DL [facility] Calcium 10.2 (8.6-10.5 ) MG/DL [facility] Comment: BORDERLINE ELEVATED CALCIUM LEVELS SHOULD BE REPEATED ON A SEPARATE DAY CLINICALLY INDICATED. NOTE: ADULT REFERENCE RANGE MAY NOT APPLY TO PEDIATRIC PATIENTS. INTERPRET RESULTS WITH CAUTION. Bilirubin, Total 0.3 (0-1.2) MG/DL [facility] Total Protein 7.0 (6.2-8.2) GM/DL [facility] A/G Ratio 2.3 [facility] AST (SGOT) 16 (0-32) U/L [facility] Alkaline Phosphatase 80 (0-187) U/L [facility] ALT (SGPT) 7 (0-33) U/L [facility] eGFR Non- Not reported if <18 yrs ML/MIN/1. 73 M2 [facility] eGFR Not reported if <18 yrs ML/MIN/1. 73 M2 [facility] Comment: Testing performed or reported by [facility], a Service of [facility], [address] [place] [address] Donal Godoy MD, Hydrochloric Area Supervisor Blood 03/26/2020 10:1 4 AM EDT 03/26/2020 10:16 AM EDT us Perlita Hart MD LAB BLOOD ORDERABLES Final Resul t [facility] from Last 3 Months or Most Recently Relevant to Health Maintenance [facility] Address: [address] [address] [place] [address] [phone] Care Teams Job Training Supervisor Relationship Specialty Start Date End Date Perlita Hart MD [address] [facility] [address] PCP - General Pediatrics 02/08/19
--- OUTSIDE RECORDS SUMMARY | 2024-12-23 20:08 | XMS_ITS ---
Author Name [facility] Organization Unknown History of Medication Use Medication Directions Dispensed Refills Start Date End Date Stat us ADVAIR DISKUS 250-50 mcg/dose diskus inhaler 08/09/2023 active montelukast (SINGULAIR) 10 mg tablet 08/09/2023 active clindamycin (CLINDAGEL) 1 % gel APPLY TOPICALLY TO NECK AND CHEST TWO TIMES A DAY 04/03/2021 active benzoyl peroxide 10 % gel MIX 30 GRAMS (1/2 TUBE) WITH CLINDAMYCIN AND APPLY TOPICALLY TO NECK AND CHEST TWICE A DAY 02/26/2021 08/18/2023 active benzoyl peroxide 10 % gel MIX 30 GRAMS (1/2 TUBE) WITH CLINDAMYCIN AND APPLY TOPICALLY TO NECK AND CHEST TWICE A DAY 02/26/2021 active meloxicam (MOBIC) 7.5 MG tablet Take by mouth 12/11/2020 04/30/2021 aborted albuterol (PROVENTIL) 0.083 % nebulizer solution USE 1 VIAL EVERY 4 HOURS NEEDED 09/06/2020 active PROAIR HFA 90 mcg/actuation inhaler INHALE TWO PUFFS BY MOUTH EVERY 4 HOURS NEEDED 09/06/2020 active topIRAMATE (TOPAMAX) 25 MG sprinkled capsule TAKE ONE CAPSULE BY MOUTH AT BEDTIME FOR 7 DAYS THEN TAKE TWO CAPSULES BY MOUTH AT BEDTIME MAY OPEN CAPSULES AND SPRINKLE ON FOOD 05/29/2020 active meclizine (TRAVEL SICKNESS, MECLIZINE,) 25 MG tablet CHEW AND SWALLOW ONE TABLET BY MOUTH THREE TIMES A DAY NEEDED FOR DIZZIENESS 04/16/2020 active cetirizine (ZYRTEC) 1 mg/mL solution Take by mouth 03/25/2020 activ e meloxicam (MOBIC) 7.5 MG tablet meloxicam 7.5 mg tablet TAKE 1 TABLET BY MOUTH DAILY 08/18/2023 aborted FLINTSTONES chewable tablet Take by mouth daily active polyethylene glycol (MIRALAX) 17 gram packet Take by mouth daily active Allergies Allergen Reaction Severity Comment Documented Date Source Statu s GLUTEN 12/11/2020 [facility] active OTHER (ENVIRONMENTAL) Other reaction(s): Runny nose 03/25/2020 [facility] active Encounters Encounter Type Encounter Reason Primary Diagnosis Location Date Ambulatory Hypermobility syndrome Hypermobility syndrome [facility] [place]23 Ambulatory Hypermobility syndrome Hypermobility syndrome [facility] [place] 08/18/2023 Ambulatory Hypermobility syndrome Hypermobility syndrome [facility] [place] 02[facility]08/2023 Ambulatory [facility] 10/15/2021 [facility] 05/02/2021 Care Team Organization Name Specialty Phone Email Start Date End Da [facility] KYLER FORD Primary Care 07/03/2023 [facility] KYLER FORD Primary Care 02/08/2023 [facility] KYLER FORD Primary Care 10/16/2021 024
== END 2024-12-23 20:10 | disposition home or self-care (01) ==
PROVIDERS: Emergency Provider Emergency Medicine; PCP Pediatrics
DX: S50.862A Insect bite (nonvenomous) of left forearm, initial encounter (principal); W57.XXXA Bitten or stung by nonvenomous insect and other nonvenomous arthropods, initial encounter; Y93.9 Activity, unspecified; Y92.9 Unspecified place or not applicable; Y99.8 Other external cause status
CPT/HCPCS: 99282

== ENCOUNTER 2025-01-26 12:26 | Emergency (ER) | payer OTHER, SELFPAY ==
--- NOTE | ~2025-01-26 | CT_ITS ---
CLINICAL HISTORY: flank pain, hx of stone, concern for stone CT abdomen and pelvis without contrast Comparison: None Findings: Examination is limited by without contrast. Lung bases are clear. No pleural effusion. Liver, Pancreas, Spleen and both adrenals show normal size, shape and attenuation on present unenhanced scan. No CBD dilatation. No calcified gallstone in the gallbladder. Both kidneys reveal normal in size, shape, position and attenuation. No kidney stone. No hydronephrosis. The IVC, aorta and portal vein are within normal position and caliber. No evidence of retroperitoneal lymphadenopathy or ascites. The visible parts of the bowel loops show no obvious mass lesions or wall thickening. No bowel obstruction. Moderate amount of fecal material within the colon. Post appendicectomy. Urinary bladder reveals normal lumen and guy. The pelvic organs are unremarkable. Visualized osseous structures appear unremarkable. No lytic or sclerotic bony lesion. IMPRESSION: No acute findings. No evidence of kidney stone. This document has been electronically signed by: Reji Juarez MD on 01/26/2025 16:10:56
--- NOTE | 2025-01-26 12:55 | ED.ABDPAIN ---
HPI - Abdominal Pain General Chief Complaint: Abdominal Pain Stated Complaint: Abdominal Pain Vomiting Time Seen by Provider: 01/26/25 13:24 Source: patient Mode of arrival: ambulatory Limitations: no limitations History of Present Illness ED Provider: Sherly Gómez PA-C HPI narrative: Patient is a 19 year old assigned female at with a past medical history of asthma presenting with abdominal pain and nausea that woke her up from sleep 4 hours ago. She says she started to have flank pain, right sided more than left a few days ago. She describes the abdominal pain as suprapubic and sharp when she urinates. She denies hematuria and incomplete emptying. She does say she has had a kidney stone before and this feels similar. She denies current fever, headache, chest pain, shortness of breath, vomiting, diarrhea. Onset (ago): hour(s) (4) Related Data Date of Last Menstrual Period: 12/19/24 Previous Rx's ?Medication ?Instructions ?Recorded amoxicillin 250 mg/5 mL oral 500 mg (10 mL) PO BID 10 days #200 06/20/24 suspension mL cyclobenzaprine 5 mg tablet 5 mg PO BID PRN muscle spasm #7 11/15/24 tabs naproxen 500 mg tablet 500 mg PO BID PRN pain #20 tabs 11/15/24 Allergies Allergy/AdvReac Type Severity Reaction Status Date / Time No Known Allergies Allergy Verified 01/26/25 12:57 Review of Systems Constitutional: Reports no additional constitutional complaints, Denies chills, Denies fever(s) and Denies night sweats Eyes: Reports no additional eye complaints Denies dizziness Cardiovascular: Reports no additional cardiovascular complaints, Denies chest pain, Denies lightheadedness, Denies Loss of Consciousness and Denies dyspnea Respiratory: Reports no additional respiratory complaints and Denies dyspnea Gastrointestinal: Reports as per HPI, Denies abdominal pain and Denies change in bowel habits Genitourinary: Denies hematuria, Denies urinary frequency, Reports dysuria, Reports flank pain, Denies urinary incontinence, Denies urinary urgency and Denies vaginal discharge Musculoskeletal: Reports no additional musculoskeletal complaints, Denies numbness and Denies tingling Denies dizziness, Denies numbness and Denies tingling Psychiatric: Reports no additional psychiatric complaints Endocrine: Reports no additional endocrine complaints Hematologic/Lymphatic: Reports no additional hematologic/lymphatic complaints Allergic/Immunologic: Reports no additional allergic/immunologic complaints PMFSH Past Medical History Attestation statement: The following information was validated with the patient. Source: old records reviewed and nursing notes reviewed Date of Last Menstrual Period: 12/19/24 Social History Social History Alcohol intake: never Smoked in Last 30 Days: No Use of substances other than those prescribed or required for medical reasons: No Advance Directives: No Advance Directives Information Provided: Yes Physical Exam ED Vital Signs: Vital Signs - 24 hr 01/26/25 12:56 Temperature 98.7 F Pulse Rate 98 Respiratory Rate 16 Blood Pressure 115/68 Pulse Oximetry 100 Oxygen Delivery Method Room Air BMI result Body Mass Index 20.8 Const General: cooperative, no acute distress, alert and awake Nutritional Appearance: well nourished Orientation/consciousness: patient oriented x3 HENMT Head: Yes normal to inspection and Yes atraumatic Ears: hearing grossly normal bilaterally and external ears normal General nose exam: Normal external nose present, no nasal discharge noted and no epistaxis Face and sinus: Yes normal facial exam, No abrasion and No laceration Mouth: Normal oral and palatal mucosa present, no drooling and no muffled voice Eyes General: appearance normal, both eyes and all related structures Periorbital: periorbital findings normal Eyelids: Yes eyelids normal Conjunctivae: conjunctivae normal Pupils: Equal, round and reactive pupils present EOM: EOMs intact bilaterally Neck Neck: Yes normal visual inspection and Yes full ROM Resp Effort & Inspection: normal respiratory effort and able to speak in complete sentences Auscultation: clear to auscultation bilaterally GI Inspection: Yes normal to inspection Palpation (GI): Soft to palpation, Tenderness to palpation present (GI) in the LLQ, in the RLQ and suprapubicly and no guarding Auscultation: normal bowel sounds General: Yes CVA tenderness (right sided) Back/Spine/Pelvis Back: CVA tenderness (right sided) Neuro General: patient oriented x3, moves all extremities and CN's II-XI intact bilaterally Cranial nerves: Yes Equal, round and reactive pupils present Cognition (Neuro): normal cognition Extrem General: Yes normal to inspection, Yes full ROM and Yes capillary refill normal Psych Appearance: grossly normal Mental Status: mental status grossly normal Affect: normal affect Attitude: cooperative Thought process: Normal thought process present Thought content: Normal thought content present Insight: Good insight present (Psych) Course Course Course Narrative: Marcella Alonso PROTECTION ANALYST 01/26 9996 This is a rapid medical exam. Deferred additional HPI, ROS, PE to primary provider. 19 yo female with history of asthma here with complaints of lower abdominal pain/nausea since 10am. No vomiting, diarrhea. LMP 7/9. H/o irregular menses. Not currently on control. Not sexually active. Will obtain labs, UA, urine preg. VSS Medical Decision Making Medical Decision Making MDM Narrative: Patient is a 19 year old assigned female at with a past medical history of asthma presenting with abdominal pain and nausea that woke her up from sleep. Patient's physical exam was as noted in the physical exam portion of this note. Patient's blood work was unremarkable. Patient's urine showed no acute process. Patient's CT abd/pelvis showed no acute process. I explained my physical exam findings as well as all test results to the patient and the patient's mother. I answered all questions asked by the patient and the patient's mother. Patient's clinical presentation is most consistent with a passed kidney stone vs. mittleschmerz vs. generalized abdominal pain. I stressed the importance of the patient taking her medication as directed (either prescribed or as the over the counter packaging recommends). I stressed the importance of the patient following up with her primary care provider. I stressed the importance of the patient returning to the emergency department immediately if her symptoms were to worsen or if she were to develop any dizziness, shortness of breath, difficulty breathing, chest pain, blurry vision, loss of vision, nausea, vomiting, abdominal pain, fever, chills, back pain, or any other complaints. Patient and the patient's mother verbalized agreement and understanding with this treatment plan and discharge. Differential Diagnosis Differential Diagnoses: The differential diagnosis associated with the presentation includes Abdominal pain UTI Passed kidney stone Mittelschmerz Admission/Observation Consideration of admission/observation: Escalation of care including admission/observation considered Patient would have been admitted to the hospital had her work up had any findings where hospital admission was appropriate and her clinical presentation warranted hospital admission. Lab Data [facility] Lab Attestation statement: I reviewed the patient's lab results. My interpretation of these results are in the MDM Rationale portion of this note. 01/26/25 13:44 01/26/25 13:45 Labs: Lab Results 01/26/25 01/26/25 01/26/25 Range/Units 13:44 13:45 13:45 WBC 6.3 (4.8-10.8) X10*3/uL RBC 4.04 L (4.20-5.50) X10*6/uL Hgb 12.7 (12.0-16.0) g/dl Hct 38.2 (37.0-47.0) % MCV 94.6 (80.0-98.0) fL MCH 31.4 (27.0-33.0) pg MCHC 33.2 (31.0-35.0) g/dl RDW 11.9 (11.0-16.0) % Plt Count 253 (160-400) X10*3/uL MPV 9.5 (9.4-12.3) fL Immature Gran % (Auto) 0.2 (0.0-0.4) % Neut % (Auto) 66.1 (45-73) % Lymph % (Auto) 24.6 (20-40) % [place] % (Auto) 8.5 (2-11) % Eos % (Auto) 0.3 (0-4) % Baso % (Auto) 0.3 (0-2) % Lymph # (Auto) 1.5 (1.2-4.9) X10*3/uL [place] # (Auto) 0.5 (0.1-1.2) X10*3/uL Eos # (Auto) 0.0 (0.0-0.4) X10*3/uL Baso # (Auto) 0.0 (0.0-0.2) X10*3/uL Abs Immat Gran (auto) 0.01 (0.00-0.03) X10*3/uL Absolute Neuts (auto) 4.1 (2.0-8.3) x10*3/uL Absolute Nucleated RBC 0.000 (0.0-0.012) X10*3/uL Nucleated RBC % (auto) 0.0 (0.0-0.2) /100WBC Sodium 139 (135-145) mmol/L Potassium 4.6 (3.3-5.1) mmol/L Chloride 106 (96-108) mmol/L Carbon Dioxide 25 (22-29) mmol/L Anion Gap 13 (12-20) BUN 9 (9-16) mg/dL Creatinine 0.57 (0.5-1.4) mg/dL Estim Creat Clear Calc 139.7 Estimated GFR > 60 Random Glucose 103 (60-115) mg/dL Calcium 9.5 (8.4-10.2) mg/dL Total Bilirubin 0.7 (0.0-1.0) mg/dL Direct Bilirubin 0.3 (0.0-0.5) mg/dL AST 20 (5-31) U/L ALT 14 (0-31) U/L Alkaline Phosphatase 61 (39-117) U/L Total Protein 7.3 (6.5-8.0) g/dL Albumin 4.8 (3.5-5.0) g/dL Beta HCG, Quant < 2 Cancelled mIU/mL Urine Color Yellow Urine Appearance Clear Urine pH 7.0 (5.0-9.0) Ur Specific [place] 1.025 (1.005-1.025) Urine Protein Trace (Neg-Trace) mg/dL Urine Glucose (UA) Negative (Negative) mg/dL Urine Ketones 15 (Negative) mg/dL Urine Blood Negative (Negative) Urine Nitrite Negative (Negative) Ur Leukocyte Esterase Negative (Negative) Independent Interpretation I performed an independent interpretation of an: CT Scan Interpretation: My interpretation is in agreement with the radiologist's impression of this imaging study. Report Number: [id number]: Total DLP = 304.00 mGy-cm CLINICAL HISTORY: flank pain, hx of stone, concern for stone CT abdomen and pelvis without contrast Comparison: None Findings: Examination is limited by without contrast. Lung bases are clear. No pleural effusion. Liver, Pancreas, Spleen and both adrenals show normal size, shape and attenuation on present unenhanced scan. No CBD dilatation. No calcified gallstone in the gallbladder. Both kidneys reveal normal in size, shape, position and attenuation. No kidney stone. No hydronephrosis. The IVC, aorta and portal vein are within normal position and caliber. No evidence of retroperitoneal lymphadenopathy or ascites. The visible parts of the bowel loops show no obvious mass lesions or wall thickening. No bowel obstruction. Moderate amount of fecal material within the colon. Post appendicectomy. Urinary bladder reveals normal lumen and guy. The pelvic organs are unremarkable. Visualized osseous structures appear unremarkable. No lytic or sclerotic bony lesion. IMPRESSION: No acute findings. No evidence of kidney stone. This document has been electronically signed by: Reji Juarez MD on 01/26/2025 16:10:56 Dictated By: Reji Juarez MD Signed By: Electronically signed by Reji Juarez MD 01/26/25 1612 Radiology Impression Discussion of test interpretation with radiology: I have reviewed the radiologist's reading. Independent Historian Clinical information obtained from an independent historian. History obtained from or confirmed by: Parent (patient's mother provided additional history and confirmed the history provided by the patient. ) Discharge Plan Discharge Clinical Impression: Abdominal pain Patient Disposition: Home, Self-Care Instructions: St[place]ontesofichmerz (ED), Abdominal Pain (ED) Additional Instructions: Your work up today was reassuring there is no EMERGENT process for your symptoms. IF you are prescribed home medications and/or you are taking over the counter medications at home - it is very important you continue to do so as prescribed / directed unless told otherwise. Follow up with a primary care provider. Return to the emergency department immediately if your symptoms worsen or if you develop any numbness, tingling, dizziness, shortness of breath, difficulty breathing, chest pain, blurry vision, loss of vision, nausea, vomiting, abdominal pain, fever, chills, back pain, or any other complaints. If you do not have a primary care provider - call any of the below numbers to establish and follow up with a primary care provider. [facility] Primary Care ([place]) [phone] [place] [address], [address] [facility] Primary Care ([address] [employer]) [phone] [place] [address], [address] [facility], [address] [facility] Primary Care ([address] [employer]) [phone] [place] [address], [address] [facility], [address] [facility] Primary Care ([place]) [phone] [place] [address] 2 [facility], [address] [facility] Family Medicine [phone] [address] [facility], [address] Please see the information below about our Patient Portal. If you are not yet enrolled in the [facility] Patient Portal, you will receive an enrollment email invitation following your visit to any [facility] care setting. You may also self-enroll in the Patient Portal by visiting our website: [email or web address] The following information is required to access the Patient Portal: - Your [facility] Medical Record Number - Your personal home email address (must match what is in your electronic medical record, Registration staff can assist with this) - Name - Date of Capabilities of the Patient Portal: - Message some providers - View upcoming appointments - Access your health summary, medical history, and visit history - View current conditions and allergies - View procedure and lab results - View your medications, including guidelines, side effects, and precautions - Complete pre-appointment questionnaires requested by your provider - Ready summary reports of your office visits and procedures To access the Patient Portal Mobile [employer], follow these directions: - Search [employer] in the [employer] Store or [employer] Store - Download the Evon - Search for [facility] - Enter your login/password Prescriptions: No Action amoxicillin 250 mg/5 mL suspension for reconstitution 500 mg PO BID 10 Days Qty: 200 0RF naproxen 500 mg tablet 500 mg PO BID PRN (Reason: pain) Qty: 20 0RF cyclobenzaprine 5 mg tablet 5 mg PO BID PRN (Reason: muscle spasm) Qty: 7 0RF Stand Alone Forms: Work/School Release Interventions: ED Discharge Assessment Last Done: 01/26/25 16:41 Print Language: Scottish
[2025-01-26 12:56] VITALS: BP 115/68; PULSE 98; RESP 16; TEMP 37.1; O2SAT 100; BMI 20.8
--- OUTSIDE RECORDS SUMMARY | 2025-01-26 13:13 | XMS_ITS | Clinical Summary ---
Author Organization [facility] Address [address] [place] [address] Phone Care Team Providers Care Manager Assurance Name Role Phone Perlita Hart MD Primary Care Provider [phone] Allergies Active Allergy Reactions Criticality Noted Date [...] hours as needed. 05/29/20 20 Active rizatriptan PLASTIC OUTFITTER 5 MG disintegrating tablet TAKE 1 CAPSULE [...] anemia, thyroid dysfunc, mono in the past (8699-7354 labs) Migraine without aura and wi thout [...] Encounters Date Type Department Care Team Description 01/26/2025 12:26 PM EDT - Present Emergency [facility] - Patient Ping 12/23/2024 7:50 PM EDT - 12/23/2024 8:10 PM EDT Emergency [facility] - Patient Ping 11/15/2024 10:38 AM EDT - 11/15/2024 3:10 PM EDT Emergency [facility] - Patient Ping from Last 3 Months Immunizations Immunization Administration [...] complete until the patient is discharged.Due to [place] state law, this organization might not be sharing sensitive test results. Procedure Name Priority Date/Time Associated Diagnosis Comments CHLAMYDIA AND GONORRHEA, AMPLIFIED Routine 07/13/2022 6:28 PM EST Screening for STDs (sexually transmitted diseases) COMPREHENSIVE METABOLIC PANEL Routine 03/26/2020 10:14 AM EDT Left upper quadrant abdominal pain from Last 3 Months or Most Recently Relevant to Health Maintenance Results * Due to [place] state law, this organization might not be sharing sensitive test results. * Chlamydia and Gonorrhoea, Amplified (07/13/2022 6:28 PM EST) Chlamydia Trachomatis, DNA Probe NEGATIVE (NEG) [facility] Comment: No Chlamydia Trachomatis RNA detected in this patient's sample (REFERENCE RANGE/NORMAL VALUE: NOT DETECTED) Note: This test uses supervisor pastry- mediated amplification method to detect rRNA from C. Trachomatis URINE GC AMP PROBE NEGATIVE (NEG) [facility] Comment: No Neisseria Gonorrhoeae RNA detected in this patient's sample (REFERENCE RANGE/NORMAL VALUE: NOT DETECTED) NOTE: This test uses supervisor pastry-mediated amplification method to detect rRNA from N.Gonorrhoeae. [...] without risk of sexual abuse. Consult the [facility] if needed. Contact phone number . Therapeutic failure or success cannot be determined with the Aptima Combo2 assay since nucleic acid may persist following appropriate antimicrobial therapy. The Centers for Disease Control and Prevention (CDC) recommends confirmatory retesting using culture or a different nucleic acid amplification test when positive results occur, if indicated. Testing performed or reported by [facility], a Service of [facility], [address] [place] [address] Teto Wood MD, Car Examiner [facility]# [id number] Urine (Urine) 07/13/2022 6:2 8 PM EST 07/14/2022 8:29 AM EST us Perlita Hart MD LAB MICROBIOLOGY - GENERAL ORDER MACIEL Final Result [facility] * (ABNORMAL) Comprehensive Metabolic Panel (03/26/2020 10:14 AM EDT) Glucose 102(H) (70-99) MG/DL [facility] Urea Nitrogen 7 (5-18) MG/DL [facility] Creatinine 0.6 (0.5-1.0) MG/DL [facility] Sodium 142 (133-145) MMOL/L [facility] Potassium 4.5 (3.6-5.2) MMOL/L [facility] Chloride 101 (98-107) MMOL/L [facility] HCO3, Arterial 28 (22-29) MMOL/L [facility] Anion Gap 13 (4-17) [facility] Albumin 4.9(H) (3.2-4.5) GM/DL [facility] Calcium 10.2 (8.6-10.5 ) MG/DL [facility] Comment: BORDERLINE ELEVATED CALCIUM LEVELS SHOULD BE REPEATED ON A SEPARATE DAY CLINICALLY INDICATED. NOTE: ADULT REFERENCE RANGE MAY NOT APPLY TO PEDIATRIC PATIENTS. INTERPRET RESULTS WITH CAUTION. Bilirubin, Total 0.3 (0-1.2) MG/DL [facility] Total Protein 7.0 (6.2-8.2) GM/DL [facility] A/G Ratio 2.3 [facility] AST (SGOT) 16 (0-32) U/L [facility] Alkaline Phosphatase 80 (0-187) U/L [facility] ALT (SGPT) 7 (0-33) U/L [facility] eGFR Non- Not reported if <18 yrs ML/MIN/1. 73 M2 [facility] eGFR Not reported if <18 yrs ML/MIN/1. 73 M2 [facility] Comment: Testing performed or reported by [facility], a Service of [facility], [address] [place] [id number] Donal Godoy MD, Car Examiner Blood 03/26/2020 10:1 4 AM EDT 03/26/2020 10:16 AM EDT Perlita Hart MD LAB BLOOD ORDERABLES Final Resul t DEVEN from Last 3 Months or Most Recently Relevant to Health Maintenance Insurance [facility] Address: [address] [address] [place] [address] [employer] ([phone]) Care Teams Manager Assurance Relationship Specialty Start Date End Date Perlita Hart MD [address] [facility] ME[place] Carcamo [phone] PCP - General Pediatrics 02/08/19
--- OUTSIDE RECORDS SUMMARY | 2025-01-26 13:13 | XMS_ITS | Clinical Summary ---
Author Organization [facility] Address [address] [place] [address], [place] [address] Care Team Providers Care Phlebotomy Support Tech Name Role Phone Frank Hart MD MPH Primary Care Provider Allergies Active Allergy Reactions Criticality Noted Date [...] FOR VERTIGO AND MIGRAINE 1 Active rizatriptan PEDIATRIC CRITICAL CARE NURSE (MAXALT-PEDIATRIC CRITICAL CARE NURSE) 5 MG dispersible tablet TAKE 1 CAPSULE [...] anemia, thyroid dysfunc, mono in the past ([id number] labs) Migraine without aura, not refractory 08/21/2017 [...] Insurance [place] [employer] [place] [employer] Care Teams Phlebotomy Support Tech Relationship Specialty Start Date End Date Frank Hart MD MPH [address] [place] [address] [place] [phone] PCP - General Pediatrics 05/04/21
--- OUTSIDE RECORDS SUMMARY | 2025-01-26 13:14 | XMS_ITS | Clinical Summary ---
Author Organization [facility] Address [address] [place] [address] Phone Care Team Providers Care Sustainability Director Name Role Phone Perlita Hart MD Primary Care Provider [phone] Dwaine Paredes DMD, MD Unavailable [phone] Harlan Marrero DMD Unavailable [phone] Allergies Active Allergy Reactions Criticality Noted Date Comments Gluten 12/11/2020 Medications albuterol 90 mcg/actuation inhaler INHALE TWO PUFFS BY MOUTH EVERY 4 HOURS NEEDED 08/20/19 20 Active cetirizine (ZYRTEC) 1 mg/mL syrup Take 10 mL by mouth. 03/25/20 20 Active fluticasone propionate (FLONASE) 50 mcg/actuation nasal spray 1 spray by Nasal route. 03/25/20 20 Active polyethylene glycol (MIRALAX) 17 gram/dose powder Take 17 g by mouth. 01/20/20 19 Active topiramate (TOPAMAX) 25 MG capsule 1 capsule by mouth daily at bedtime for 1 week, then 2 capsules at bedtime. May open capsules and sprinkle on soft food. 60 capsule 5 05/29/20 20 Active Additional Information Patient not taking.Reported on 10/15/2021 rizatriptan (MAXALT-CANAL EQUIPMENT MAINTENANCE SUPERVISOR) 5 MG disintegrating tablet Take 1 tablet (5 mg total) by mouth as needed for migraine. May repeat in 2 hours if needed 12 tablet 3 05/29/20 Active Additional Information Patient not taking.Reported on 10/15/2021 mv,calcium,min/iro n/folic/vitK (MULTI FOR HER ORAL) Take by mouth. Activ e naproxen (NAPROSYN) 500 MG tablet Take 1 tablet (500 mg total) by mouth 2 (two) times a day with meals for 7 days. 14 tablet 1 10/16/19 Active amitriptyline (ELAVIL) 10 MG tablet 1 tablet by mouth daily at bedtime for 10 days, then 2 tablets by mouth for 10 days, then 3 tablets by mouth therafter 90 tablet 3 10/16/19 Active Active Problems Problem Noted Date Diagnosed Date Migrainous vertigo 05/29/2020 Orthostatic dizziness 05/29/2020 Migraine without aura and wi thout status migrainosus, not intractable 05/29/2020 Social History Tobacco Use Types Packs/Day Years Used Date Smoking Tobacco: Never Assessed Education Answer Date Recorded Are you interested in more education? Not on brendan e 10/08/2022 Are you concerned about learning? Not on file 10/08/2022 No 10/08/2022 No 10/08/2022 Digital Access Answer Date Recorded No 11/09/2022 No 11/09/2022 No 11/09/2022 Reliable internet access at home? Not on file 11/09/2022 Device with a working camera? Not on file Comments Unknown Sex and Gender Information Value Date Recorded Sex Assigned at Not on file Legal Sex Female 2:15 PM EDT Gender Identity Not on file Sexual Orientation Not on file Last Filed Vital Signs Vital Sign Reading Time Taken Comments Blood Pressure 109/59 10/15/2021 2:48 PM EDT Pulse 95 10/15/2021 2:48 PM EDT Temperature - - Respiratory Rate - - Oxygen Saturation - - Inhaled Oxygen Concentration - - Weight 52 kg (114 lb 9.6 oz) 10/15/2021 2:48 PM EDT Height 158 cm (5' 2.21 ) 10/15/2021 2:48 PM EDT Body Mass Index 20.82 10/15/2021 2:48 PM EDT Plan of Treatment Health Maintenance Due Date Last Done Comments COMBINED DTaP,Tdap,Td (6 - Tdap) 2014 08/04/2011, 07/11/2009, 08/25/2004, Additional history exists DEPRESSION SCREENING 2015 SMOKING Hx and SMOKELESS TOBACCO SCREENING 2016 HPV VACCINES (2 - 3-dose series) 05/17/2019 04/19/2019 CHLAMYDIA SCREENING 2019 MENINGOCOCCAL VACCINES (B) (1 of 2 - Standard) 2019 ADOLESCENT UNIVERSAL LIPID SCREENING 2020 HEPATITIS C SCREENING 2021 HIV ONE-TIME SCREENING (18-65 YEARS) 2021 Adult Td,Tdap Booster 08/04/2021 08/04/2011 COVID-19 VACCINE ( season) 2024 11/01/2021, 10/11/2021 PAP SMEAR 2024 HIB VACCINES Completed 05/28/2004, 12/11, 2003, Additional history exists PNEUMOCOCCAL VACCINES (0-49 years) Aged Out 05/28/2004, 03/04/2004, 2003, Additional history exists No longer eligible based on patient's age to complete this topic MMR VACCINES Completed 07/11/2009, 05/28/2004 HEPATITIS A VACCINES Completed 07/03/2020, 04/19/20 19 MENINGOCOCCAL VACCINES (ACWY) Completed 07/03/2020, 12/22/2017 Medical Devices Not on file Insurance [facility] [employer] 2002 (Home) [address] [place] [phone] [facility] [employer] Care Teams Sustainability Director Relationship Specialty Start Date End Date Perlita Hart MD [address] [place] [id number] PCP - General 07/26/19 Dwaine Paredes DMD, MD [address] [place] [phone] [email or web address] driver 11/27/21 Harlan Marrero DMD [address] [place] [id number] [email or web address] 11/27/21 Additional Source Comments The information contained in this document represents components of the legal health record. It is not the complete legal health record.[facility]
[2025-01-26 13:49] LABS: MANUAL DIFF FLAG NO
[2025-01-26 13:52] LABS: Hematocrit 38.2 % (37.0-47.0); Hemoglobin 12.7 g/dl (12.0-16.0); Imm Gran Abs Auto 0.01 X10*3/uL (0.00-0.03); Imm Gran Pct Auto 0.2 % (0.0-0.4); Lymphocytes Absolute Auto 1.5 X10*3/uL (1.2-4.9); Mean Corpuscular HGB Conc 33.2 g/dl (31.0-35.0); Mean Corpuscular Hemoglobin 31.4 pg (27.0-33.0); Mean Corpuscular Volume 94.6 fL (80.0-98.0); NRBC Abs Auto 0.000 X10*3/uL (0.0-0.012); NRBC Pct Auto 0.0 /100WBC (0.0-0.2); Platelet Count 253 X10*3/uL (160-400); Red Blood Count 4.04 X10*6/uL (4.20-5.50); White Blood Count 6.3 X10*3/uL (4.8-10.8)
[2025-01-26 13:58] LABS: Appearance Urine Clear; Glucose Urine UA Negative (Negative); PH 7.0 (5.0-9.0); Specific Gravity - Urine 1.025 (1.005-1.025)
[2025-01-26 14:16] LABS: Alanine Aminotransferase 14 U/L (0-31); Albumin Level 4.8 g/dL (3.5-5.0); Alkaline Phosphatase 61 U/L (39-117); Anion Gap 13 (12-20); Aspartate Amino Transferase 20 U/L (5-31); Blood Urea Nitrogen 9 mg/dL (9-16); Calcium 9.5 mg/dL (8.4-10.2); Carbon Dioxide 25 mmol/L (22-29); Chloride 106 mmol/L (96-108); Creatinine Clr Calc Pharmacy 139.7; Estimated Glomerular Filt Rate > 60; Potassium 4.6 mmol/L (3.3-5.1); Sodium 139 mmol/L (135-145); Total Protein 7.3 g/dL (6.5-8.0)
[2025-01-26 16:41] VITALS: BP 107/64; PULSE 73; RESP 18; TEMP 36.6; O2SAT 98
== END 2025-01-26 16:43 | disposition home or self-care (01) ==
PROVIDERS: Nurse Practitioner Family; Emergency Provider Emergency Medicine
DX: R10.2 Pelvic and perineal pain (principal); R11.2 Nausea with vomiting, unspecified; Z87.442 Personal history of urinary calculi
CPT/HCPCS: 36415; 74176; 80048; 80076; 81003; 84702; 85025; 99284

== ENCOUNTER → 2025-01-26 13:59 | Outpatient (BNV) | payer OTHER, SELFPAY | PROVIDERS: Emergency Provider Emergency Medicine; Visit Provider Nuclear Medicine | DX: R10.11 Right upper quadrant pain (principal) | CPT/HCPCS: 74176 ==

== ENCOUNTER 2025-02-03 20:53 | Emergency (ER) | payer OTHER, SELFPAY ==
--- NOTE | ~2025-02-03 | XR_ITS ---
CLINICAL HISTORY: cough 1 view chest x-ray Comparison: CR/SR - XR CHEST 2 VIEWS - 11/15/24 11:41 EDT Findings: No consolidation or effusion. Heart size is normal. No acute fracture. IMPRESSION: 1. No acute findings. This document has been electronically signed by: Aureliano Llamas MD on 02/03/2025 22:13:34
[2025-02-03 21:09] VITALS: BP 125/69; PULSE 92; RESP 18; TEMP 37.1; O2SAT 100; BMI 22.3
[2025-02-03 21:37] LABS: IDNOW Serial# 58CA691E; Strep A Nucleic Acid Negative (Negative)
[2025-02-03 21:48] LABS: COVID-19 Test Negative (Negative); IDNOW Serial# 55D5AD1C
--- NOTE | 2025-02-04 00:08 | ED.URI ---
HPI - URI/Sore Throat General Chief Complaint: Upper Respiratory Symptoms Stated Complaint: sore throat, wheezing, coughing, headache, asthma Time Seen by Provider: 02/03/25 22:49 Source: patient and family Mode of arrival: ambulatory Limitations: no limitations History of Present Illness ED Provider: Dr. Yvette Kwon HPI Narrative: 19-year-old female with a history of asthma presenting with cough and sore throat ongoing for the last 3 days or so. Noticed a slight cough that is nonproductive associated with sore throat, particularly with swallowing. Had a fever as high as 100? at home. No known sick contacts or travel. Denies associated headaches, vision changes, sinus congestion, chest pain, difficulty breathing, nausea, vomiting, diarrhea, urinary complaints. Related Data Previous Rx's ?Medication ?Instructions ?Recorded amoxicillin 250 mg/5 mL oral 500 mg (10 mL) PO BID 10 days #200 06/20/24 suspension mL cyclobenzaprine 5 mg tablet 5 mg PO BID PRN muscle spasm #7 11/15/24 tabs naproxen 500 mg tablet 500 mg PO BID PRN pain #20 tabs 11/15/24 dexamethasone 4 mg tablet 4 mg PO DAILY 5 days #5 tabs 02/04/25 Allergies Allergy/AdvReac Type Severity Reaction Status Date / Time No Known Allergies Allergy Verified 02/03/25 21:12 Review of Systems Review of Systems: as per HPI, full review of systems performed and negative but for the above mentioned pertinent positives and negatives. [facility] Social History Social History Alcohol intake: never Advance Directives: No Advance Directives Information Provided: No Do you have a plan to hurt others: No Plan Physical Exam Exam: Exam: GENERAL: Ill-Appearing, appears uncomfortable. SKIN: Normal skin color for ethnicity, warm, dry, no rashes noted. HEENT: Normocephalic, atraumatic, no stridor, dry mucous membranes, dentition intact, EOMI, PERRLA. NECK: Soft, supple, full ROM, midline structures nontender, no step-offs, no deformities, no lymphadenopathy. CHEST: Heart regular tachycardia, no murmurs, symmetric chest rise and fall. PULMONARY: Clear to auscultation bilaterally, diminished at the bases, no labored breathing, occasional bronchospastic cough, no wheezes/rhales/rhonchi. ABDOMINAL: Soft, nondistended, nontender, positive bowel sounds in all quadrants. : Deferred. MUSCULOSKELETAL: Normal tone, full range of motion, no deformities, no peripheral edema. NEURO: Alert and oriented x3, CN II through XII intact, equal strength and sensation bilateral upper and lower extremities, no focal neurologic deficits. PSYCHIATRIC: Flat affect, fluid speech, good eye contact and appropriate demeanor. Vital Signs: Vital Signs: Last Vital Signs Temp 98.8 F 02/03/25 21:09 Pulse 92 02/03/25 21:09 Resp 18 02/03/25 21:09 BP 125/69 02/03/25 21:09 Pulse Ox 100 02/03/25 21:09 O2 Del Method Room Air 02/03/25 21:09 BMI result Body Mass Index 22.3 Medical Decision Making Medical Decision Making [facility] Narrative: Patient presents today with a chief complaint of sore throat. Differential diagnosis includes pharyngitis as well as ENT emergencies such as epiglottitis, retropharyngeal abscess, peritonsillar abscess, Cameron's angina, angioedema, allergic reaction, among many others. On exam, patient is nontoxic, tolerating their secretions, without signs of respiratory distress. Strep swab is negative, COVID swab is negative. She appears to have a viral bronchitis with bronchospasm. We will treat with steroids and bronchodilators. Discussed importance of follow with the primary care as well as strict return precautions. Discharged in stable condition. Differential Diagnosis Differential Diagnoses: The differential diagnosis associated with the presentation includes (As above) Admission/Observation Consideration of admission/observation: Escalation of care including admission/observation considered Lab Data [facility] Lab Attestation statement: I reviewed the patient's lab results. Labs: Lab Results 02/03/25 Range/Units 21:22 COVID-19 (AUREA) Negative (Negative) COVID-19 Clin Com See Note S. pyogenes GrpA OBDULIO Negative (Negative) Independent Interpretation I performed an independent interpretation of an: Plain X-Ray Interpretation: My independent interpretation of the chest x-ray reveals no consolidations, pulmonary edema, pleural effusion, pneumothorax, obvious bony abnormalities. Radiology Impression Discussion of test interpretation with radiology: I have reviewed the radiologist's reading. Independent Historian Clinical information obtained from an independent historian. History obtained from or confirmed by: Parent Prescription Management I considered prescription management with: Other (Steroids) Chronic Conditions Patient?s care impacted by: Other (Asthma) Discharge Plan Discharge Clinical Impression: Acute bronchitis with bronchospasm Patient Disposition: Home, Self-Care Instructions: Acute Bronchitis (ED) Prescriptions: New dexamethasone 4 mg tablet 4 mg PO DAILY 5 Days Qty: 5 0RF No Action amoxicillin 250 mg/5 mL suspension for reconstitution 500 mg PO BID 10 Days Qty: 200 0RF naproxen 500 mg tablet 500 mg PO BID PRN (Reason: pain) Qty: 20 0RF cyclobenzaprine 5 mg tablet 5 mg PO BID PRN (Reason: muscle spasm) Qty: 7 0RF Print Language: Polish
[2025-02-04] MEDS: Albuterol/Iprat 2.5/0.5MG 3 ML AMPUL.NEB INHALE (00:24)
[2025-02-04 00:51] VITALS: BP 111/56; PULSE 111; RESP 16; TEMP 36.9; O2SAT 97
== END 2025-02-04 01:13 | disposition home or self-care (01) ==
PROVIDERS: Emergency Provider Emergency Medicine
DX: J20.9 Acute bronchitis, unspecified (principal); J45.909 Unspecified asthma, uncomplicated
CPT/HCPCS: 71045; 87635; 87651; 99282; 99284; J8540

== ENCOUNTER → 2025-02-03 21:13 | Outpatient (BNV) | payer OTHER, SELFPAY | PROVIDERS: Emergency Provider Emergency Medicine; Visit Provider Radiology Diagnostic Radiology | DX: R05.9 Cough, unspecified (principal) | CPT/HCPCS: 71045 ==

== ENCOUNTER 2025-03-27 16:24 | Emergency (ER) | payer OTHER, SELFPAY ==
--- NOTE | ~2025-03-27 | XR_ITS ---
CLINICAL HISTORY: dry cough, upper back pain 2 view chest x-ray Comparison: CR - XR CHEST 1V - 02/03/25 21:25 EDT Findings: No consolidation or effusion. Heart size is normal. No acute fracture. IMPRESSION: 1. No acute findings. This document has been electronically signed by: Pasha Davis MD on 03/27/2025 17:22:43
--- OUTSIDE RECORDS SUMMARY | 2025-03-27 16:24 | XMS_ITS | Encounter Summary ---
Author Organization [facility] Address [address] [place] [address] Phone Care Team Providers Care Actuarial Trainee Name Role Phone Perlita Hart MD Primary Care Provider [phone] Reason for Visit * Reason Comments ED Admission Encounter Details Date Type Department Care Team (Late st Contact Info) Description 03/27/2025 4:24 PM EDT - Present Emergency [facility] - Patient Ping Social History Tobacco Use Types Packs/Day Years [...] Orientation Straight 04/19/2019 11 :37 AM EST documented as of this encounter Plan of Treatment Not on file documented as of this encounter Visit Diagnoses Not on filedocumented in this encounter Care Teams Actuarial Trainee Relationship Specialty Start Date End Date Perlita Hart MD [address] [facility] [place] [address] PCP - General Pediatrics 02/08/19 documented as of this encounter
[2025-03-27 16:28] VITALS: BP 131/76; PULSE 112; RESP 16; TEMP 37.1; O2SAT 100; BMI 22.7
--- NOTE | 2025-03-27 16:29 | ED.GENADULT ---
HPI - General Adult General Chief complaint: Back Pain/Injury Stated complaint: back, chest pain, vomiting, sob Related Data Previous Rx's ?Medication ?Instructions ?Recorded amoxicillin 250 mg/5 mL oral 500 mg (10 mL) PO BID 10 days #200 06/20/24 suspension mL cyclobenzaprine 5 mg tablet 5 mg PO BID PRN muscle spasm #7 11/15/24 tabs naproxen 500 mg tablet 500 mg PO BID PRN pain #20 tabs 11/15/24 dexamethasone 4 mg tablet 4 mg PO DAILY 5 days #5 tabs 02/04/25 Allergies Allergy/AdvReac Type Severity Reaction Status Date / Time No Known Allergies Allergy Verified 03/27/25 16:31 [facility] Social History Social History Alcohol intake: never Advance Directives: No Advance Directives Information Provided: No Physical Exam ED Vital Signs: Vital Signs - 24 hr 03/27/25 16:28 Temperature 98.8 F Pulse Rate 112 H Respiratory Rate 16 Blood Pressure 131/76 Pulse Oximetry 100 Oxygen Delivery Method Room Air BMI result Body Mass Index 22.7 Course Course Course Narrative: This is a Rapid Medical Examination (RME) performed by Dior Tellez PA-C in triage. Full HPI, ROS, assessment and treatment plan per primary provider in the Main ED. Hx: Patient is a 19 yo F presenting with a CC of upper left back pain with radiation to the R upper back and dry cough starting on Tuesday. Also endorses vomiting beginning yesterday, as well as SOB. Rates pain 8/10. Denies chest pain. Not on any control, denies recent car rides or long travel. No sick contacts. Plan:labs, CXR, EKG, viral swabs Reevaluation(s) Reevaluation #1: Patient left the emergency department before myself or any of the other clinicians could review or explain physical exam findings, test results, need or lack there of for additional testing, treatment options, or a treatment plan. Medical Decision Making Lab Data 03/27/25 16:46 03/27/25 16:46 Labs: Lab Results 03/27/25 Range/Units 16:46 WBC 7.8 (4.8-10.8) X10*3/uL RBC 3.98 L (4.20-5.50) X10*6/uL Hgb 12.3 (12.0-16.0) g/dl Hct 36.9 L (37.0-47.0) % MCV 92.7 (80.0-98.0) fL MCH 30.9 (27.0-33.0) pg MCHC 33.3 (31.0-35.0) g/dl RDW 11.6 (11.0-16.0) % Plt Count 249 (160-400) X10*3/uL MPV 9.9 (9.4-12.3) fL Immature Gran % (Auto) 0.4 (0.0-0.4) % Neut % (Auto) 69.1 (45-73) % Lymph % (Auto) 19.4 L (20-40) % Turner % (Auto) 10.3 (2-11) % Eos % (Auto) 0.5 (0-4) % Baso % (Auto) 0.3 (0-2) % Lymph # (Auto) 1.5 (1.2-4.9) X10*3/uL Turner # (Auto) 0.8 (0.1-1.2) X10*3/uL Eos # (Auto) 0.0 (0.0-0.4) X10*3/uL Baso # (Auto) 0.0 (0.0-0.2) X10*3/uL Abs Immat Gran (auto) 0.03 (0.00-0.03) X10*3/uL Absolute Neuts (auto) 5.4 (2.0-8.3) x10*3/uL Absolute Nucleated RBC 0.000 (0.0-0.012) X10*3/uL Nucleated RBC % (auto) 0.0 (0.0-0.2) /100WBC Sodium 138 (135-145) mmol/L Potassium 3.9 (3.3-5.1) mmol/L Chloride 109 H (96-108) mmol/L Carbon Dioxide 23 (22-29) mmol/L Anion Gap 10 L (12-20) BUN 9 (9-16) mg/dL Creatinine 0.61 (0.5-1.4) mg/dL Estim Creat Clear Calc 115.3 Estimated GFR > 60 Random Glucose 93 (60-115) mg/dL Calcium 9.3 (8.4-10.2) mg/dL Magnesium 2.0 (1.6-2.6) mg/dL Total Bilirubin 0.4 (0.0-1.0) mg/dL AST 16 (5-31) U/L ALT 9 (0-31) U/L Alkaline Phosphatase 61 (39-117) U/L Total Protein 7.1 (6.5-8.0) g/dL Albumin 4.6 (3.5-5.0) g/dL Beta HCG, Quant < 2 mIU/mL COVID-19 (AUREA) Negative (Negative) COVID-19 Clin Com See Note Influenza Type A (OBDULIO) Negative (Negative) Influenza Type B (OBDULIO) Negative (Negative) Influenza A & B Note See Note Discharge Plan Discharge Clinical Impression: Back pain Patient Disposition: Left W/O Completing Treatment Prescriptions: No Action dexamethasone 4 mg tablet 4 mg PO DAILY 5 Days Qty: 5 0RF amoxicillin 250 mg/5 mL suspension for reconstitution 500 mg PO BID 10 Days Qty: 200 0RF naproxen 500 mg tablet 500 mg PO BID PRN (Reason: pain) Qty: 20 0RF cyclobenzaprine 5 mg tablet 5 mg PO BID PRN (Reason: muscle spasm) Qty: 7 0RF Discharge Date/Time: 03/27/25 22:45
--- NOTE | 2025-03-27 16:32 | ECG_ITS ---
Test Reason : tachycardic Blood Pressure : */* mmHG Vent. Rate : 104 BPM Atrial Rate : 104 BPM P-R Int : 154 ms QRS Dur : 76 ms QT Int : 334 ms P-R-T Axes : 61 54 42 degrees QTcB Int : 439 ms Sinus tachycardia Otherwise normal ECG When compared with ECG of 15-Nov-2024 11:10, No significant change was found Referred By: Cat Tellez Electronically Signed By: Sly Greene
[2025-03-27 16:49] LABS: MANUAL DIFF FLAG NO
[2025-03-27 16:56] LABS: Hematocrit 36.9 % (37.0-47.0); Hemoglobin 12.3 g/dl (12.0-16.0); Imm Gran Abs Auto 0.03 X10*3/uL (0.00-0.03); Imm Gran Pct Auto 0.4 % (0.0-0.4); Lymphocytes Absolute Auto 1.5 X10*3/uL (1.2-4.9); Mean Corpuscular HGB Conc 33.3 g/dl (31.0-35.0); Mean Corpuscular Hemoglobin 30.9 pg (27.0-33.0); Mean Corpuscular Volume 92.7 fL (80.0-98.0); NRBC Abs Auto 0.000 X10*3/uL (0.0-0.012); NRBC Pct Auto 0.0 /100WBC (0.0-0.2); Platelet Count 249 X10*3/uL (160-400); Red Blood Count 3.98 X10*6/uL (4.20-5.50); White Blood Count 7.8 X10*3/uL (4.8-10.8)
[2025-03-27 17:06] LABS: Alanine Aminotransferase 9 U/L (0-31); Albumin Level 4.6 g/dL (3.5-5.0); Alkaline Phosphatase 61 U/L (39-117); Anion Gap 10 (12-20); Aspartate Amino Transferase 16 U/L (5-31); Blood Urea Nitrogen 9 mg/dL (9-16); Calcium 9.3 mg/dL (8.4-10.2); Carbon Dioxide 23 mmol/L (22-29); Chloride 109 mmol/L (96-108); Creatinine Clr Calc Pharmacy 115.3; Estimated Glomerular Filt Rate > 60; Magnesium 2.0 mg/dL (1.6-2.6); Potassium 3.9 mmol/L (3.3-5.1); Sodium 138 mmol/L (135-145); Total Protein 7.1 g/dL (6.5-8.0)
[2025-03-27 17:10] LABS: COVID-19 Test Negative (Negative); IDNOW Serial# 55D5AD1C; IDNOW Serial# 58CA691E; Influenza B2 Negative (Negative)
--- OUTSIDE RECORDS SUMMARY | 2025-03-27 22:10 | XMS_ITS | Encounter Summary ---
Author Organization [facility] Address [address] [place] [id number] Phone Care Team Providers Care Senior Database Engineer Name Role Phone Perlita Hart MD Primary Care Provider [phone] Encounter Details Date Type Department Care Team (Late st Contact Info) Description 08/16/2016 Conversion Encounter Pediatric [facility] Adolescent Medicine [facility] [address] [place] [address] [place] [address] Social History Tobacco Use Types Packs/Day Years Used Date Smoking Tobacco: Never Assessed Comments Unknown Sex and Gender Information Value Date Recorded Sex Assigned at Not on file Legal Sex Female 6:38 PM EDT Gender Identity Female 05/26/2020 11:28 AM EST Sexual Orientation Straight 04/19/2019 11 :37 AM EST documented as of this encounter Plan of Treatment Not on file documented as of this encounter Visit Diagnoses Not on filedocumented in this encounter Care Teams Senior Database Engineer Relationship Specialty Start Date End Date Perlita Hart MD [address] [place], [place] [address] [place] [address] PCP - General Pediatrics 02/08/19 documented as of this encounter
--- OUTSIDE RECORDS SUMMARY | 2025-03-27 22:10 | XMS_ITS | Clinical Summary ---
Author Organization [facility] Address [address] [place] [address] Phone Care Team Providers Care Vacuum Cleaner Assembler Name Role Phone Perlita Hart MD Primary Care Provider [phone] Allergies Active Allergy Reactions Criticality Noted Date [...] hours as needed. 05/29/20 20 Active rizatriptan SUPERVISOR DISPLAY FABRICATION 5 MG disintegrating tablet TAKE 1 CAPSULE [...] anemia, thyroid dysfunc, mono in the past (9720-4266 labs) Migraine without aura and wi thout [...] Encounters Date Type Department Care Team Description 03/27/2025 4:24 PM EDT - Present Emergency [facility] - Patient Ping 03/08/2025 Documentation Pediatric And Adolescent Medicine - [address] [address] Perlita Hart MD dermatology consult note 02/03/2025 8:53 PM EDT - 02/04/2025 1:13 AM EDT Emergency [facility] - Patient Ping 01/26/2025 12:26 PM EDT - 01/26/2025 4:43 PM EDT Emergency [facility] - Patient Ping from Last 3 [...] Trum enba SCDM 2-dose series) 07/11/2022 01/08/2022 Chlamydia and Gonorrhea Screening 06/13/2024 07/13/2022, 01/08/2022, 12/03/2020 Influenza Vaccines (#1) 2025 COVID-19 Vaccine (3 - 2024-2 6 season) 2025 11/01/2021, 10/11/2021 Hepatitis B Vaccines Completed 2003, 2003, 2003 [...] complete until the patient is discharged.Due to [facility] law, this organization might not be sharing sensitive test results. Procedure Name Priority Date/Time Associated Diagnosis Comments CHLAMYDIA AND GONORRHEA, AMPLIFIED Routine 07/13/2022 6:28 PM EST Screening for STDs (sexually transmitted diseases) COMPREHENSIVE METABOLIC PANEL Routine 03/26/2020 10:14 AM EDT Left upper quadrant abdominal pain from Last 3 Months or Most Recently Relevant to Health Maintenance Results * Due to [place] [employer] law, this organization might not be sharing sensitive test results. * Chlamydia and Gonorrhoea, Amplified (07/13/2022 6:28 PM EST) Chlamydia Trachomatis, DNA Probe NEGATIVE (NEG) [facility] Comment: No Chlamydia Trachomatis RNA detected in this patient's sample (REFERENCE RANGE/NORMAL VALUE: NOT DETECTED) Note: This test uses technical training instructor- mediated amplification method to detect rRNA from C. Trachomatis URINE GC AMP PROBE NEGATIVE (NEG) [facility] Comment: No Neisseria Gonorrhoeae RNA detected in this patient's sample (REFERENCE RANGE/NORMAL VALUE: NOT DETECTED) NOTE: This test uses technical training instructor-mediated amplification method to detect rRNA from N.Gonorrhoeae. [...] without risk of sexual abuse. Consult the [facility] if needed. Contact phone [...] [facility], a Service of [facility], [address], [place] [address] Teto Wood MD, Asphalt Spreader Operator [facility]# [id number] Urine (Urine) 07/13/2022 6:2 8 PM EST 07/14/2022 8:29 AM EST us Perlita Hart MD LAB MICROBIOLOGY - GENERAL ORDER MACIEL Final Result [facility] * (ABNORMAL) Comprehensive Metabolic Panel (03/26/2020 10:14 AM EDT) Glucose 102(H) (70-99) MG/DL [facility] Urea Nitrogen 7 (5-18) MG/DL [facility] Creatinine 0.6 (0.5-1.0) MG/DL [facility] Sodium 142 (133-145) MMOL/L [facility] Potassium 4.5 (3.6-5.2) MMOL/L [facility] Chloride 101 (98-107) MMOL/L [facility] HCO3, Arterial 28 (22-29) MMOL/L [facility] Anion Gap 13 (4-17) [facility] Albumin 4.9(H) (3.2-4.5) GM/DL [facility] Calcium 10.2 (8.6-10.5 ) MG/DL [facility] Comment: BORDERLINE ELEVATED CALCIUM LEVELS SHOULD BE REPEATED ON A SEPARATE DAY CLINICALLY INDICATED. NOTE: ADULT REFERENCE RANGE MAY NOT APPLY TO PEDIATRIC PATIENTS. INTERPRET RESULTS WITH CAUTION. Bilirubin, Total 0.3 (0-1.2) MG/DL [facility] Total Protein 7.0 (6.2-8.2) GM/DL [facility] A/G Ratio 2.3 [facility] AST (SGOT) 16 (0-32) U/L [facility] Alkaline Phosphatase 80 (0-187) U/L [facility] ALT (SGPT) 7 (0-33) U/L [facility] eGFR Non- Not reported if <18 yrs ML/MIN/1. 73 M2 [facility] eGFR Not reported if <18 yrs ML/MIN/1. 73 M2 [facility] Comment: Testing performed or reported by [facility], a Service of [facility], [address] [place] [address] [place] [address] Donal Godoy MD, Asphalt Spreader Operator Blood 03/26/2020 10:1 4 AM EDT 03/26/2020 10:16 AM EDT us Perlita Hart MD LAB BLOOD ORDERABLES Final Resul t [facility] from Last 3 Months or Most Recently Relevant to Health Maintenance Insurance [facility] Address: [address] [address] [place] [address] [employer] ([id number]) Care Teams Vacuum Cleaner Assembler Relationship Specialty Start Date End Date Perlita Hart MD [address] [facility] [place] [address] PCP - General Pediatrics 02/08/19
--- OUTSIDE RECORDS SUMMARY | 2025-03-27 22:10 | XMS_ITS | Clinical Summary ---
Author Organization [facility] Address [address] [place] [address] Care Team Providers Care Antisqueak Filler Name Role Phone Perlita Hart MD Primary Care Provider [phone] Source Comments Please note that some or all of the patient's information could have additional privacy protections. State laws allow health care providers to render certain types of treatment to minors without parental consent. Please do not assume that this information can be shared solely by obtaining just the consent of the patient's parent/guardian. Please determine if all or part of the patient's care was rendered without parent/guardian involvement. And, if so, obtain the minor's consent prior to disclosure.[facility] Allergies Active Allergy Reactions Criticality Noted Date Comments Gluten 12/11/2020 Other (Environmental) 03/25/2020 Other reaction(s): Runny nose Medications cetirizine (ZYRTEC) 1 mg/mL solution Take by mouth 03/25/2020 Active albuterol (PROVENTIL) 0.083 % nebulizer solution USE 1 VIAL EVERY 4 HOURS NEEDED 09/06/2020 Active PROAIR HFA 90 mcg/actuation inhaler INHALE TWO PUFFS BY MOUTH EVERY 4 HOURS NEEDED 09/06/2020 Active fluticasone propionate (FLONASE) 50 mcg/actuation nasal spray 2 sprays by Nasal route daily Active benzonatate (TESSALON) 100 MG capsule TAKE ONE CAPSULE BY MOUTH THREE TIMES A DAY NEEDED FOR COUGH FOR 10 DAYS 04/01/2023 Active ADVAIR DISKUS 250-50 mcg/dose diskus inhaler 08/09/2023 Acti ve montelukast (SINGULAIR) 10 mg tablet 08/09/2023 Active Active Problems No known active problems Family History Medical History Relation Name Comments Arthritis Maternal Grandfather Fibromyalgia Mother Lupus Mother Pain Mother Thyroid disease Mother Juvenile idiopathic arthritis Neg Hx Rheum arthritis Neg Hx Relation Name Status Comments Maternal Grandfather Mother Social History Tobacco Use Types Packs/Day Years Used Date Smoking Tobacco: Never Smokeless Tobacco: Never Tobacco Cessation:Counseling Given: Not Answered Other Needs Answer Date Recorded Anything else about your child you'd like help w ith? Not on file 02/25/2023 Share good news about positive changes: Not on f ile 02/25/2023 Comments No Sex and Gender Information Value Date Recorded Sex Assigned at Not on file Legal Sex Female 2:26 PM EDT Gender Identity Not on file Sexual Orientation Not on file Last Filed Vital Signs Vital Sign Reading Time Taken Comments Blood Pressure 112/76 11/24/2023 8:37 AM EDT Pulse 75 11/24/2023 8:37 AM EDT Temperature 36.8 C (98.3 F) 02/08/2023 10:14 AM EDT Respiratory Rate 16 02/08/2023 10:14 AM EDT Oxygen Saturation 80% 08/18/2023 9:49 AM EST Inhaled Oxygen Concentration - - Weight 54 kg (119 lb 0.8 oz) 11/24/2023 8:37 AM EDT Height 159 cm (5' 2.6 ) 11/24/2023 8:37 AM EDT Body Mass Index 21.36 11/24/2023 8:37 AM EDT Plan of Treatment Health Maintenance Due Date Last Done Comments DTaP/TDAP/TD VACCINES (1 - Tdap) 2010 ADOLESCENT HIV SCREENING 2016 COVID-19 Vaccine ( - 2023-2 5 season) 2025 INFLUENZA (#1) 2025 NIRSEVIMAB VACCINES UNDER 8 MONTHS Aged Out No longer eligible based on patient's age to complete this topic Insurance [facility] Care Teams Antisqueak Filler Relationship Specialty Start Date End Date Perlita Hart MD [address] [place] [address] PCP - General General Pediatrics 09/09/20
== END 2025-03-27 22:45 | disposition left against medical advice (07) ==
PROVIDERS: Physician Assistant Medical; Emergency Provider Emergency Medicine
DX: M54.50 Low back pain, unspecified (principal); R00.0 Tachycardia, unspecified; R05.9 Cough, unspecified; Z11.52 Encounter for screening for COVID-19
CPT/HCPCS: 36415; 71046; 80053; 83735; 84702; 85025; 87502; 87635; 93005; 99283

== ENCOUNTER → 2025-03-27 16:32 | Outpatient (BNV) | payer OTHER, SELFPAY | PROVIDERS: Emergency Provider Emergency Medicine; Visit Provider Internal Medicine Cardiovascular Disease | DX: R00.0 Tachycardia, unspecified (principal) | CPT/HCPCS: 93010 ==

== ENCOUNTER → 2025-03-27 16:33 | Outpatient (BNV) | payer OTHER, SELFPAY | PROVIDERS: Visit Provider Radiology Diagnostic Radiology | DX: R07.9 Chest pain, unspecified (principal) | CPT/HCPCS: 71046 ==